=== PATIENT | male | born 1950 | race Caucasian/White ===

== ENCOUNTER 2024-12-21 12:27 | Outpatient (AMB) | payer OTHER, SELFPAY ==
--- NOTE | 2024-12-21 12:41 | A.OFFPC_ITS ---
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 Allergies chocolate Allergy (Intermediate, Verified 12/21/24 13:47) Rash environmental allergies Allergy (Intermediate, Verified 12/21/24 13:47) Rash Penicillins Allergy (Intermediate, Verified 12/21/24 13:13) Dizziness Medication List - Last Reconciled 12/21/24 by MARIPOSA Edwards garlic mg PO magnesium 500 mg PO DAILY pot bicarb-sod bicarb-cit ac 344-1,050-1,000 mg ([place] [facility]) 1 tab PO Q4H PRN Tobacco use date assessed: 12/21/24 Fall risk assessment: No Falls in past year Last assessed Fall Risk: 12/21/24 Dental Screening Dental Screen Date: 12/21/24 Did you have a dental visit in the last 12 months?: Yes Did you have a dental problem in the last 6 months where you did not have access to dental care?: No Was dental information given to patient?: 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 The patient reports scoliosis and arthritis, which cause significant back pain and mobility issues. He experiences days where he requires a wheelchair or walker due to severe pain. The arthritis affects his spine and back, leading to muscle displacement at night. He has cataracts in both eyes, which have not been surgically addressed due to financial constraints. The patient experiences cardiac arrhythmia, describing episodes where his heart stops and restarts, accompanied by visual disturbances and dizziness. These episodes occur almost every other day and have been increasing in frequency, even occurring during sleep. He has been advised that his heart valves are leaking, possibly due to age, and is considering valve replacement surgery. He has a history of high cholesterol, which he manages with dietary modifications, although he consumes ice cream daily. He was previously misinformed about having high blood sugar, which was corrected to high cholesterol. The patient also suffers from depression and anxiety, exacerbated by social isolation and recent family losses. He has no family support and relies on a caregiver for daily activities. The patient caregiver Tee over 14 hours a day with him, cooking cleaning and helping him with ADLs. Patient reports that his biggest fear has been placed in a residential. The patient reports significant environmental allergies that affects his breathing at times. He is requesting an order for an air conditioner that does not needs to be placed in the window, and an air purifier. The patient also reports that he is a hypochondriac, and he is scared of vaccines and medications. Murmur heard on assessment-reports that he had an echo probably about 10 months ago in [place] Patient to seek assistance from [facility] Medical History (Updated 12/22/24 @ 22:04 by MARIPOSA Edwards) Leaky heart valve Scoliosis Arthritis of lumbar spine Hypochondria Anxiety and depression Surgical History No pertinent past surgical history Family History Father Diabetes Brother Bladder cancer Mother Hypertension Brother Congestive heart failure Social History Household Members: None Housing: Apartment Alcohol intake: never Patient Tobacco Use Status: Never used Tobacco e-Cigarette/Vaping Use: Never Used service: No Current occupational status: retired Cognitive needs: Yes Hearing needs: No Vision needs: Yes Questionnaire PHQ-9 Over the last 2 weeks, how often have you been bothered by any of the following problems? 1. Little interest or pleasure in doing things: several days 2. Feeling down, depressed, or hopeless: several days 3. Trouble falling or staying asleep, or sleeping too much: several days 4. Feeling tired or having little energy: several days 5. Poor appetite or overeating: several days 6. Feeling bad about yourself - or that you are a failure or have let yourself or your family down: several days 7. Trouble concentrating on things, such as reading the newspaper or watching television: several days 8. Moving or speaking so slowly that other people could have noticed. Or the opposite - being so fidgety or restless that you have been moving around a lot more than usual: several days 9. Thoughts that you would be better off or of hurting yourself in some way: not at all Total score: 8 Depression Screening Interpretation: Positive Depression Screening Done: Yes 39741 - PHQ-9 Billing: Yes Source: Developed by Drs. Isac Mackay, Janeen Perry, Je Escobedo and colleagues, with an educational trey from [employer]. Thrive Questionnaire Date Thrive assessed: 12/21/24 I am a: Patient What is your living situation today?: I have a steady place to live Within the past 12 months, did the food you bought not last and you didn't have the money to get more?: Never true Within the past 12 months, did you worry whether your food would run out before you got money to buy more?: Never true Do you have trouble paying for medicines?: No Do you have trouble getting transportation to medical appointments?: No Do you have trouble paying your heating and electricity bill?: Yes Do you have trouble taking care of your child, family member or friend?: No Do you have trouble with day-to-day activities such as bathing, preparing meals, shopping, managing finances, etc.?: Yes Are you currently unemployed and looking for a job?: Yes Are you interested in more education?: No Please select the resources that you would like help with: None Currently or been in a relationship where the following occur: No concerns reported THRIVE Score: 1 AUDIT C Alcohol Use Questionnaire (AUDIT-C) 1. How often do you have a drink containing alcohol?: Never 3. How often do you have six or more drinks on one occasion?: Never Total Score: 0 MIRNA-7 AMB Questionnaire MIRNA-7 Date MIRNA - 7 assessed: 12/21/24 Feeling nervous, anxious, or on edge: 1 = Several days Not being able to stop or control worryin = Several days Worrying too much about different things: 1 = Several days Trouble relaxin = Several days Being so restless that it is hard to sit still: 1 = Several days Becoming easily annoyed or irritable: 1 = Several days Feeling afraid as if something awful might happen: 1 = Several days Total MIRNA-7 score (0-4 normal; 5-9 mild; 10-14 moderate; 15-21 severe): 7 Source: Developed by Drs. Isac Mackay, Janeen Perry, Je Escobedo and colleagues, with an educational trey from [employer]. MIRNA-7 Assessment Billing MIRNA-7 Assessment Tool: MIRNA-7 Assessment 47041 Review of Systems Const Denies headache(s) Eyes Denies loss of vision ENT Denies vertigo, Denies dizziness, Denies headache(s) and Denies sore throat Card Denies chest pain, Reports irregular heart rhythm, Denies leg edema and Denies lightheadedness Resp Denies cough, Denies hemoptysis and Denies wheezing GI Denies abdominal pain, Denies melena, Denies constipation, Denies diarrhea and Denies vomiting Denies dysuria, Denies urinary frequency and Denies urinary urgency Musc Denies arthralgias, Denies joint swelling, Denies numbness and Denies tingling Neuro Denies Abnormal speech present, Denies behavioral changes, Denies vertigo, Denies dizziness, Denies headache(s), Denies loss of vision, Denies memory loss, Denies numbness and Denies tingling Psych Denies anxiety, Denies behavioral changes, Denies depression, Denies memory loss and Denies panic attacks Miah/Lymph Denies easy bleeding and Denies easy bruising Aller/Immun Denies wheezing Physical exam (Primary Care) Vital Signs: Last Vital Signs Temp 97.3 F 12/21/24 12:54 Pulse 60 12/21/24 12:54 Resp 16 12/21/24 12:54 BP 122/90 H 12/21/24 12:54 Pulse Ox 96 12/21/24 12:54 Oxygen Delivery Method Room Air 12/21/24 12:54 BMI result Body Mass Index 25.4 Tobacco/Smoking Status: Tobacco use Status Tobacco use date assessed 12/21/24 12/21/24 13:04 Patient Tobacco Use Status Never used Tobacco 12/21/24 13:04 e-Cigarette/Vaping Use Never Used 12/21/24 13:04 PHQ-9: PHQ-9 Score PHQ-9: Total score 8 12/21/24 13:12 Depression Screening Interpretation: Positive Thrive Assessment: Date of Thrive Assessment Date Thrive assessed 12/21/24 12/21/24 13:04 Currently or been in a relationship where the following occur: No concerns reported Const General: healthy appearing, no acute distress, alert and awake Nutritional Appearance: well nourished Orientation/consciousness: oriented to person, oriented to place and oriented to time HENMT Ears: TM's normal bilaterally General nose exam: Normal nasal mucous membranes and turbinates present Eyes Conjunctivae: conjunctivae normal Sclerae: sclerae normal Pupils: Equal, round and reactive pupils present Neck Neck: Yes no lymphadenopathy and Yes no JVD Thyroid: Thyroid normal Carotids: no bruits Resp Effort & Inspection: normal respiratory effort and not tachypneic Auscultation: no crackles, no rales, no rhonchi and no wheezes Cardio Rate: regular rate Rhythm: regular rhythm Heart sounds: Murmur heart sound present systolic III/ and normal S1 and S2 GI Palpation (GI): Soft to palpation, nontender, no hepatomegaly and no splenomegaly Auscultation: normal bowel sounds Back/Spine/Pelvis Cervical Spine: other (Scoliosis, right [id number] back) Thoracic/Lumbar Spine: No thoracic spinal tenderness and No lumbar spinal tenderness Skin General skin exam: no rashes or lesions noted and dry skin Neuro General: oriented to person, oriented to place and oriented to time Cranial nerves: Yes Equal, round and reactive pupils present Speech: No Abnormal speech present Gait exam (Neuro): Normal gait present Motor exam (neuro): no tremor noted Extrem Right upper extremity: full ROM Left upper extremity: full ROM Right lower extremity: full ROM; no edema Left lower extremity: full ROM; no edema Psych Mental Status: mental status grossly normal Speech and movement: Normal speech and movement present Affect: normal affect Attitude: cooperative Thought process: Normal thought process present Coding Level of Care Code New Pt Level 4 (38130) Diagnoses Anxiety and depression F41.9; F32.A 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 M47.816 Scoliosis of thoracolumbar spine, unspecified scoliosis type M41.9 Scoliosis type: unspecified scoliosis Spinal region: thoracolumbar Leaky heart valve I38 Hyperlipidemia, unspecified hyperlipidemia type E78.5 Hyperlipidemia type: unspecified Additional Codes MIRNA-7 Assessment Billing - MIRNA-7 Assessment Tool: MIRNA-7 Assessment 53249 ([id number]) PHQ-9 - 84214 - PHQ-9 Billing: Yes ([id number]) Time Spent (min) 42 Assessment & Plan Assessment & Plan (1) Anxiety and depression: Code(s): F41.9 - Anxiety disorder, unspecified; F32.A - Depression, unspecified Category: Medical (2) Hypochondria: Code(s): 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 - Hypochondriasis Category: Medical (3) Arthritis of lumbar spine: Code(s): M47.816 - Spondylosis without myelopathy or radiculopathy, lumbar region Category: Medical (4) Scoliosis: Code(s): M41.9 - Scoliosis, unspecified Category: Medical Qualifiers: Scoliosis type: unspecified scoliosis Spinal region: thoracolumbar Qualified Code(s): M41.9 - Scoliosis, unspecified (5) Leaky heart valve: Code(s): I38 - Endocarditis, valve unspecified Category: Medical (6) HLD (hyperlipidemia): Code(s): E78.5 - Hyperlipidemia, unspecified Category: Medical Qualifiers: Hyperlipidemia type: unspecified Qualified Code(s): E78.5 - Hyperlipidemia, unspecified Plan The patient will continue to manage high cholesterol through dietary modifications, with a focus on reducing ice cream consumption. Further evaluation of cardiac arrhythmia is recommended, including obtaining previous echocardiogram records and considering valve replacement surgery if indicated. The patient is advised to seek psychological support for depression and anxiety, potentially through a psychologist or counselor. Continued use of a caregiver for daily activities is supported, with efforts to secure financial assistance for caregiving services. Patient was informed and verbally consented to the use of an ambient scribe for clinic note documentation during this visit. Orders: Orders Complete Blood Count Auto Diff 12/21/24 Z00.00 - Encounter for general adult medical examination without abnormal findings Comprehensive [place]. Panel Fast 12/21/24 Z00.00 - Encounter for general adult medical examination without abnormal findings UA CC w/rflx Micro + Cult 12/21/24 Z00.00 - Encounter for general adult medical examination without abnormal findings Vitamin D 25-OH Total 12/21/24 Z. - Encounter for general adult medical examination without abnormal findings Lipid Panel 12/21/24 Z00. - Encounter for general adult medical examination without abnormal findings TSH reflex Free T4 12/21/24 Z00.00 - Encounter for general adult medical examination without abnormal findings Referrals Counseling Referral F32.A - Depression, unspecified, F41.9 - Anxiety disorder, unspecified, F45.21 - Hypochondriasis
[2024-12-21 12:54] VITALS: BP 122/90; PULSE 60; RESP 16; TEMP 36.3; O2SAT 96; BMI 25.4
== END 2024-12-21 14:02 | disposition home or self-care (01) ==
LOC: HO.HMCH 12:28
DX: F41.9 Anxiety disorder, unspecified (principal); F32.A Depression, unspecified; F45.21 Hypochondriasis; M47.816 Spondylosis without myelopathy or radiculopathy, lumbar region; M41.9 Scoliosis, unspecified; I38 Endocarditis, valve unspecified; E78.5 Hyperlipidemia, unspecified

== ENCOUNTER → 2024-12-21 12:27 | Outpatient (BNVA) | payer OTHER, SELFPAY | DX: F45.21 Hypochondriasis (principal); M41.9 Scoliosis, unspecified; E78.00 Pure hypercholesterolemia, unspecified; F41.9 Anxiety disorder, unspecified; F32.A Depression, unspecified; J30.2 Other seasonal allergic rhinitis; M47.816 Spondylosis without myelopathy or radiculopathy, lumbar region; I38 Endocarditis, valve unspecified; E78.5 Hyperlipidemia, unspecified | CPT/HCPCS: 96127; 99202 ==

== ENCOUNTER 2025-03-23 14:28 | Outpatient (AMB) | payer OTHER, SELFPAY ==
[2025-03-23 14:37] VITALS: BP 160/90; PULSE 54; RESP 18; O2SAT 100; BMI 26.2
--- NOTE | 2025-03-23 14:37 | MHC.PC.OV ---
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 Accompanied by: Self / Same As Patient Allergies chocolate Allergy (Intermediate, Verified 03/23/25 14:52) Rash environmental allergies Allergy (Intermediate, Verified 03/23/25 14:52) Rash Penicillins Allergy (Intermediate, Verified 03/23/25 14:52) Dizziness Medication List - Last Reconciled 03/23/25 by MARIPOSA Edwards [air purifier As directed] garlic mg PO magnesium 500 mg PO DAILY pot bicarb-sod bicarb-cit ac 344-1,050-1,000 mg ([facility] [facility]) 1 tab PO Q4H PRN Tobacco use date assessed: 03/23/25 Fall risk assessment: No Falls in past year Last assessed Fall Risk: 03/23/25 Dental Screening Dental Screen Date: 03/23/25 Did you have a dental visit in the last 12 months?: Yes Did you have a dental problem in the last 6 months where you did not have access to dental care?: No Was dental information given to patient?: Patient has dentist HPI HPI Comments History of Present Illness Details The patient is a 74 year old individual presenting to discuss an insurance denial for an air purifier and other health concerns. The patient reports needing an air purifier and air conditioner due to health conditions. The patient brought in a certified letter from his landlord stating that his appointment as above a nail salon that is causing the patient difficulty to breathe. The patient reports severe allergies to different items in the environment. Per review of medical records the patient has a history of obstructive sleep apnea and was recommended to wear CPAP. Patient reports that he has not been wearing this. 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 In office the patient denies shortness of breath, chest pain, heart palpitation or dizziness. Patient denies abdominal pain or change in bowel habits. He reports ongoing intermittent diarrhea that he associated with his nerves/mental health. The patient wants to know if there is any vitamins or natural remedies to cure his intermittent diarrhea. The patient reports that he is a sick person but he is scared of taking any medication because his family members keep dying off and he is very worried about this. Blood pressure was noted to be elevated. He is wondering if there is something naturally he could do bring his blood pressure down. Encouraged lowering his salt intake. We will start a low-dose of lisinopril and have the patient return in 4 weeks for blood pressure check Health Maintenance A follow-up appointment will be scheduled in four months for a complete physical examination. The patient is advised to complete lab work one week prior to the appointment. Social History - Housing: The patient has lived in the same building for 40 years and reports concerns about - Stress: The patient reports significant stress and feeling - Nutritional Intake: The patient states they do not eat much and have been fasting, partly due to diarrhea. Results - Labs: Recent blood work from another provider reportedly showed cholesterol that was - Diagnostics: A sleep study from approximately two years ago suggested obstructive sleep apnea. [facility] Medical History (Updated 03/23/25 @ 23:00 by MARIPOSA Edwards) Colitis Leaky heart valve Scoliosis Arthritis of lumbar spine Hypochondria Anxiety and depression Surgical History No pertinent past surgical history Family History Father Diabetes Brother Bladder cancer Mother Hypertension Brother Congestive heart failure Social History Household Members: None Housing: Apartment Alcohol intake: never Patient Tobacco Use Status: Never used Tobacco e-Cigarette/Vaping Use: Never Used service: No Current occupational status: retired Cognitive needs: Yes Hearing needs: No Vision needs: Yes Questionnaire PHQ-9 Over the last 2 weeks, how often have you been bothered by any of the following problems? 1. Little interest or pleasure in doing things: several days 2. Feeling down, depressed, or hopeless: several days 3. Trouble falling or staying asleep, or sleeping too much: several days 4. Feeling tired or having little energy: several days 5. Poor appetite or overeating: several days 6. Feeling bad about yourself - or that you are a failure or have let yourself or your family down: several days 7. Trouble concentrating on things, such as reading the newspaper or watching television: several days 8. Moving or speaking so slowly that other people could have noticed. Or the opposite - being so fidgety or restless that you have been moving around a lot more than usual: several days 9. Thoughts that you would be better off or of hurting yourself in some way: not at all Total score: 8 Depression Screening Interpretation: Positive Depression Screening Done: Yes Source: Developed by Drs. Isac Mackay, Janeen Prery, Je Escobedo and colleagues, with an educational trey from [employer]. Thrive Questionnaire Date Thrive assessed: 03/23/25 I am a: Patient What is your living situation today?: I have a steady place to live Within the past 12 months, did the food you bought not last and you didn't have the money to get more?: Never true Within the past 12 months, did you worry whether your food would run out before you got money to buy more?: Never true Do you have trouble paying for medicines?: No Do you have trouble getting transportation to medical appointments?: No Do you have trouble paying your heating and electricity bill?: Yes Do you have trouble taking care of your child, family member or friend?: No Do you have trouble with day-to-day activities such as bathing, preparing meals, shopping, managing finances, etc.?: Yes Are you currently unemployed and looking for a job?: Yes Are you interested in more education?: No Please select the resources that you would like help with: None Currently or been in a relationship where the following occur: No concerns reported THRIVE Score: 1 AUDIT C Alcohol Use Questionnaire (AUDIT-C) 1. How often do you have a drink containing alcohol?: Never 3. How often do you have six or more drinks on one occasion?: Never Total Score: 0 MIRNA-7 AMB Questionnaire MIRNA-7 Date MIRNA - 7 assessed: 12/21/24 Feeling nervous, anxious, or on edge: 1 = Several days Not being able to stop or control worryin = Several days Worrying too much about different things: 1 = Several days Trouble relaxin = Several days Being so restless that it is hard to sit still: 1 = Several days Becoming easily annoyed or irritable: 1 = Several days Feeling afraid as if something awful might happen: 1 = Several days Total MIRNA-7 score (0-4 normal; 5-9 mild; 10-14 moderate; 15-21 severe): 7 Source: Developed by Drs. Isac Mackay, Janeen Perry, Je Escobedo and colleagues, with an educational trey from [employer]. Review of Systems Narrative Review of Systems - General: Reports not feeling well. - Cardiovascular: Reports palpitations. - Respiratory: Reports difficulty breathing. - Gastrointestinal: Reports diarrhea, occurring twice in one day. - Psychiatric: Reports significant stress and anxiety. - Neurological: Reports sleep problems. - Allergic/Immunologic: Reports Const Denies headache(s) Eyes Denies loss of vision ENT Denies vertigo, Denies dizziness, Denies headache(s), Reports nasal congestion (Intermittent) and Denies sore throat Card Denies chest pain, Reports irregular heart rhythm, Denies leg edema and Denies lightheadedness Resp Denies cough, Denies hemoptysis and Denies wheezing GI Denies abdominal pain, Denies melena, Denies constipation, Reports diarrhea (On and off) and Denies vomiting Denies dysuria, Denies urinary frequency and Denies urinary urgency Musc Reports back pain (Lower), Denies arthralgias, Denies joint swelling, Denies numbness and Denies tingling Skin/Breast Denies lesions and Denies rash Neuro Denies Abnormal speech present, Denies behavioral changes, Denies vertigo, Denies dizziness, Denies headache(s), Denies loss of vision, Denies memory loss, Denies numbness and Denies tingling Psych Reports anxiety, Denies behavioral changes, Denies depression, Denies memory loss and Denies panic attacks Miah/Lymph Denies easy bleeding and Denies easy bruising Aller/Immun Denies wheezing Physical exam (Primary Care) Vital Signs: Last Vital Signs Pulse 54 03/23/25 14:37 Resp 18 03/23/25 14:37 BP 160/90 H 03/23/25 14:37 Pulse Ox 100 03/23/25 14:37 Oxygen Delivery Method Room Air 03/23/25 14:37 BMI result Body Mass Index 26.2 Tobacco/Smoking Status: Tobacco use Status Tobacco use date assessed 03/23/25 03/23/25 14:48 Patient Tobacco Use Status Never used Tobacco 03/23/25 14:48 e-Cigarette/Vaping Use Never Used 03/23/25 14:48 PHQ-9: PHQ-9 Score PHQ-9: Total score 8 03/23/25 15:10 Depression Screening Interpretation: Positive Thrive Assessment: Date of Thrive Assessment Date Thrive assessed 03/23/25 03/23/25 14:48 Currently or been in a relationship where the following occur: No concerns reported Narrative Physical Exam Const General: healthy appearing, no acute distress, alert and awake Nutritional Appearance: well nourished Orientation/consciousness: oriented to person, oriented to place and oriented to time HENMT Ears: TM's normal bilaterally General nose exam: Abnormal mucous membranes and turbinates present erythematous bilateral Eyes Conjunctivae: conjunctivae normal Sclerae: sclerae normal Pupils: Equal, round and reactive pupils present Neck Neck: Yes no lymphadenopathy and Yes no JVD Thyroid: Thyroid normal Carotids: no bruits Resp Effort & Inspection: normal respiratory effort and not tachypneic Auscultation: no crackles, no rales, no rhonchi and no wheezes Cardio Rate: regular rate Rhythm: regular rhythm Heart sounds: Murmur heart sound present systolic III/ and normal S1 and S2 GI Palpation (GI): Soft to palpation, nontender, no hepatomegaly and no splenomegaly Auscultation: normal bowel sounds Back/Spine/Pelvis Cervical Spine: other (Scoliosis, right [id number] back) Thoracic/Lumbar Spine: No thoracic spinal tenderness and No lumbar spinal tenderness Skin General skin exam: no rashes or lesions noted and dry skin Neuro General: oriented to person, oriented to place and oriented to time Cranial nerves: Yes Equal, round and reactive pupils present Speech: No Abnormal speech present Gait exam (Neuro): Normal gait present Motor exam (neuro): no tremor noted Extrem Right upper extremity: full ROM Left upper extremity: full ROM Right lower extremity: full ROM; no edema Left lower extremity: full ROM; no edema Psych Mental Status: mental status grossly normal Speech and movement: Normal speech and movement present Affect: normal affect Attitude: cooperative Thought process: Normal thought process present Coding Level of Care Code Est Pt Level 4 (59303) Diagnoses Colitis K52.9 Anxiety and depression F41.9; F32.A Allergic rhinitis, unspecified seasonality, unspecified trigger J30.9 Allergic rhinitis trigger: unspecified Allergic rhinitis seasonality: unspecified Elevated blood pressure reading R03.0 Time Spent (min) 38 Assessment & Plan Assessment & Plan (1) Colitis: Code(s): K52.9 - Noninfective gastroenteritis and colitis, unspecified Category: Medical (2) Anxiety and depression: Code(s): F41.9 - Anxiety disorder, unspecified; F32.A - Depression, unspecified Category: Medical (3) Allergic rhinitis: Code(s): J30.9 - Allergic rhinitis, unspecified Category: Medical Qualifiers: Allergic rhinitis trigger: unspecified Allergic rhinitis seasonality: unspecified Qualified Code(s): J30.9 - Allergic rhinitis, unspecified (4) Elevated blood pressure reading: Code(s): R03.0 - Elevated blood-pressure reading, without diagnosis of hypertension Category: Medical Plan Plan Patient was informed and verbally consented to the use of an ambient scribe for clinic note documentation during this visit. 1. Allergic Rhinitis And Environmental Concerns An order for an air purifier for allergies was previously submitted but was denied by the patient's insurance. The patient has appealed the decision. The office staff will contact the insurance company to determine the reason for the denial and what additional documentation is needed. 2. Anxiety And Stress The patient reports significant stress and anxiety, which the patient believes triggers colitis symptoms. The patient agreed to a referral for a therapist. 3. Colitis The patient has a history of colitis for 40 years, which is reportedly exacerbated by stress and anxiety. The patient is currently experiencing diarrhea. Management will focus on addressing triggers, primarily through a therapy referral for stress management. Will also place a GI referral to the patient evaluated. 4. Elevated blood pressure in office Blood pressure 160/90, similar with upon repeat bp check. Started lisinopril 5 mg, return in 4 weeks for blood pressure check by nurse. Reinforced low-salt diet. Discussion Notes I discussed the patient's primary concern regarding the insurance denial for an air purifier. I informed the patient that I had previously ordered it for allergies but have not received any communication from the insurance company regarding a denial or need for more information. I advised that my office will call the insurance company to clarify the situation. We also reviewed the patient's other health concerns, including a history of colitis flared by stress, sleep apnea, heart palpitations, and anxiety. Given the significant impact of stress on the patient's well-being and physical symptoms, I recommended a referral to a therapist, to which the patient agreed. We agreed on a follow-up visit in four months for a comprehensive physical exam and to review fresh lab work, which the patient will have done a week prior to the visit. Patient Instructions - Our office will contact your insurance company about the denied request for an air purifier and see what information they need. - We will provide you with a referral to see a therapist for stress and anxiety. - Please schedule a follow-up appointment for a full physical exam in about four months. - Make sure to get your blood tests done about one week before your next appointment so the results are ready for your visit. Orders: Referrals Gastroenterology Referral K52.9 - Noninfective gastroenteritis and colitis, unspecified Counseling Referral F41.9 - Anxiety disorder, unspecified Medications: New lisinopril 5 mg PO DAILY 30 tabs 3RF lisinopril 5 mg PO DAILY 30 tabs 3RF
--- OUTSIDE RECORDS SUMMARY | 2025-03-23 19:51 | XMS_ITS | Data Portability ---
Author Organization [facility] Address [address] [place] [address] Assessment Encounter Date Assessment Date Assessment LastModified by Organization Details LastModified Time 12/23/2019 12/23/2019 Managed conservatively with medication. Discussed physical therapy for exercises for this issue. Return for worsening or if no further improvement. Follow-up with [facility] after PT regimen is completed and the following month. [email or web address] Not available 12/23/2019 17:29:21 09/20/2020 09/20/2020 1. Lumbar radiculopathy probably related to stenosis. PLAN: The patient s symptoms are recurrent and resistant to conservative measures. Further evaluation with MRI is appropriate. Follow-up with results. Not available 09/20/2020 15:37:00 10/11/2020 10/11/2020 1. Lumbar disc herniation. PLAN: Treatment options were discussed with the patient including medications, injecting and surgery. He is doing reasonably well on p.r.n. ibuprofen and has actually improved a bit, compared to when he was last here. Follow-up in a month or sooner as needed. Not available 10/12/2020 08:29:47 01/09/2021 01/09/2021 1. Lumbar disc herniation with flare-up after improvement. PLAN: We discussed his options including medication and injection. He wants to wait and see how things go. If he wants to pursue the epidural, he may call and request that. Overall continued improvement is expected over the long-term. Follow-up as needed. Meyers/[id number] [email or web address] Not available 01/09/2021 22:29:24 Plan of Treatment Reminders Order Date Submit Date Provider Last Modified By Organization Details Last Modified Time Details Appointments None recorded. Lab None recorded. Referral physical therapist referral 2019 020 SRAVANI [facility] [place], [address], [address], [place], [address], 0 08:40:15 Procedures None recorded. Surgeries None recorded. Imaging MRI, lumbar spine, w/o contrast - right leg pain 2020 021 SRAVANI [facility], [address], [address], [place], [address], 1 15:40:21 Medication Orders Medrol ([place]) 4 mg tablets in a dose pack 2019 020 [email or web address] [id number], [address] [place], [address], 0 15:38:39 Patient TargetsNo targets recorded. Patient Instructions Encounter Date Encounter Id Patient Instructions Last Modified By Organization Details Last Modified Time 09/20/2020 [id number] DISCUSSION: X-ra ys of the lumbar spine are reviewed on an imported study dated December 2019, [facility]. There is diffuse disc degeneration of a mild degree. He has significant facet hypertrophy at either L4-5 or L5-S1 on the right depending on numbering, probably L4-5. L4-5 facet joints look quite sclerotic on the lateral view with some vacuum phenomenon. Meyers/[id number] Not available 09/20/2020 15:37:11 10/11/2020 [id number] MRI shows posterolateral herniation at L3-4. This correlates well with his symptoms. Meyers/[id number] Not available 10/12/2020 08:29:57 Reason for Referral Physical Therapist Referral for Patellofemoral stress syndrome Referring Physician: Aguilar Healy, Orthopedic Surgery, Encounter Date: 12/23/2019 Results Created Date Observation Date Name Description Value Unit Range Abnormal Flag Note LastModifiedBy Organization Detail LastModifiedTime 10/03/1910/02/2020 MRI, lumba r spine , w/o contr ast [facility] [address], [address] [facility] [place] [id number] Josue cross Name: KEYA STONE 16 Josue cross : 1950 Referr eduard nath: Stephanie Meyers MD Exam Date: 2020 Exam Descri ption: MR Lumbar Spine w/o Contra st HISTOR Y: Radicu lopath y low back pain. Right lumbos acral and buttoc k pain. TECHNI NEIDA FACTOR S: L-Spin e Sag SE T1, Sag FSE T2, COR 3D HYCE, Ax SE T1. COMPAR BRIAN: None. FINDIN GS: Leftwa rd lumbar curvat ure. Normal lordos is. Bilate ral renal cyst. No compre ssion fractu re. No infilt rative or destru ctive bone lesion . L5-S1: Transi tional anatom y. Facet hypert rophy. Well-d evelop ed disc. Mild bilate ral forami nal stenos is. L4-5: Disc protru javier. Facet and ligame ntous hypert rophy. Loss of disc height and endpla te spurri ng. Modera te bilate ral forami nal stenos is and exitin g nerve imping ement. L3-4: Disc protru javier. Right pre forami nal disc hernia tion. Facet and ligame ntous hypert rophy. Modera te right greate r left neural forami nal stenos is and exitin g nerve imping ement. Severe right latera l recess stenos is and descen ding nerve imping ement. L2-3: Mild disc protru javier, facet hypert rophy. Mild bilate ral forami nal stenos is and exitin g nerve imping ement. L1-2: Mild disc protru javier and facet hypert rophy. Mild stenos is withou t imping ement. T12-L1 : No disc protru javier, stenos is or imping ement. Normal cord conus ending at L1. Normal aorta withou t aneury sm. No adenop athy. Normal parasp inal soft tissue s and muscul ature. CONCLU JAVIER: 1. L5-S1: Transi tional anatom y. Mild bilate ral forami nal stenos is withou t imping ement. 2. L4-5: Modera te bilate ral exitin g nerve imping ement. 3. L3-4: Modera te right greate r left exitin g and severe right descen ding nerve imping ement. Right pre forami nal disc hernia tion. 4. L2-3: Mild bilate ral exitin g nerve imping ement. Thank you for the opport unity to provid e your interp retati on. Laura Hallman MD A: 2020 1:50 PM rharden [facility] [address] [place] [address] [address], [place], [address], 10/04/2020 12:39:34 Result Notes Documentation Provider Name and Address Organization Details Recorded Time Mri, Lumbar Spine, W/o Contrast : [facility] [address], [address] [place], [place] [address] Patient Name: AGUILAR STONE Patient : 1950 Referring Physician: Matthew Meyers MD Exam Date: 09/28/2020 Exam Description: MR Lumbar Spine w/o Contrast HISTORY: Radiculopathy low back pain. Right lumbosacral and buttock pain. TECHNICAL FACTORS: L-Spine Sag SE T1, Sag FSE T2, COR 3D HYCE, Ax SE T1. COMPARISON: None. FINDINGS: Leftward lumbar curvature. Normal lordosis. Bilateral renal cyst. No compression fracture. No infiltrative or destructive bone lesion. L5-S1: Transitional anatomy. Facet hypertrophy. Well-developed disc. Mild bilateral foraminal stenosis. L4-5: Disc protrusion. Facet and ligamentous hypertrophy. Loss of disc height and endplate spurring. Moderate bilateral foraminal stenosis and exiting nerve impingement. L3-4: Disc protrusion. Right pre foraminal disc herniation. Facet and ligamentous hypertrophy. Moderate right greater left neural foraminal stenosis and exiting nerve impingement. Severe right lateral recess stenosis and descending nerve impingement. L2-3: Mild disc protrusion, facet hypertrophy. Mild bilateral foraminal stenosis and exiting nerve impingement. L1-2: Mild disc protrusion and facet hypertrophy. Mild stenosis without impingement. T12-L1: No disc protrusion, stenosis or impingement. Normal cord conus ending at L1. Normal aorta without aneurysm. No adenopathy. Normal paraspinal soft tissues and musculature. CONCLUSION: 1. L5-S1: Transitional anatomy. Mild bilateral foraminal stenosis without impingement. 2. L4-5: Moderate bilateral exiting nerve impingement. 3. L3-4: Moderate right greater left exiting and severe right descending nerve impingement. Right pre foraminal disc herniation. 4. L2-3: Mild bilateral exiting nerve impingement. Thank you for the opportunity to provide your interpretation. Cory Hallman MD A: 10/02/2020 1:50 PM LONA [email or web address] [facility] 10/04/2020 12:39:34 Problems No Known Problems Medical Equipment None Reported. Allergies No known drug allergies Medications Name Sig Start Date Stop Date Status Note LastModified by Organization Details LastModified Time Medrol ([place]) 4 mg tablets in a dose pack Take 1 dose pk by oral route. 020 active Not Available Not Available Not Avai lable prednisone 5 mg tablets in a dose pack TAKE DIRECTED START TOMORROW WITH FOOD active Not Available Not Available No t Available vitamin E 1 daily active Not Available Not Av ailable Not Available Vitals Date Recorded Body height Provider Name an d Address Organization Details Last Updated DateTime 09/20/2020 167.64 cm Sejal Zhao [facility] 09/20/2020 10:23:30 Date Recorded Body height Provider Name an d Address Organization Details Last Updated DateTime 10/11/2020 167.64 [facility] 10/11/2020 15:09:05 Date Recorded Body height Body mass index (BMI) Body weight Provider Name and Address Organization Details Last Updated DateTime 12/23/2019 167.64 cm 25 kg/m2 19984.82 g [facility] 12/23/2019 13:03:33 Date Recorded Body height Provider Name an d Address Organization Details Last Updated DateTime 01/09/2021 167.64 cm Dulce Reid [facility] 01/09/2021 08:26:22 Social History Question Answer Notes LastModified by Organizat ion Details LastModified Time Tobacco Smoking Status Never Smoker Fabienne kennedy, [place] - [facility] 12/20/2019 16:59:13 Do You Have An Advance Directive? No [email or web address] Information not available 12/20/2019 How Many Years Have You Consumed Alcohol? 0 Information not available 12/20/2019 Auto Related Injury? No Information not available 01/09/2021 What Is Your Level Of Caffeine Consumption? Occasional [email or web address] Information not available 12/20/2019 How Much Tobacco Do You Chew? None [email or web address] Information not available 12/20/2019 Which Of Your Hands Is Dominant? Right [email or web address] Information not available 12/20/2019 Ambulatory Status Ambulates W/o Assistance [email or web address] Information not available 12/20/2019 Do You Live Alone Or With Others? Yes [email or web address] Information not available 12/20/2019 Illicit Drugs No [email or web address] Information not available 12/20/2019 Do You Vape? No [email or web address] Information not available 12/20/2019 Marital Status Single Informatio n not available 01/09/2021 What Was The Date Of Your Most Recent Tobacco Screening? 12/20/2019 Information not available 01/09/2021 How Many Children Do You Have? 0 Information not available 01/09/2021 At What Age Did You Start Smoking Tobacco? 0 Information not available 01/09/2021 How Much Tobacco Do You Smoke? No [email or web address] Information not available 12/20/2019 How Many Years Have You Smoked Tobacco? 0 Information not available 01/09/2021 Work Related Injury? No Information not available 01/09/2021 Sex: Unknown Functional Status Question Answer Note LastModified by Organizat ion Details LastModified Time What is your level of alcohol consumption? None [email or web address] Information not available 12/20/2019 Do you or have you ever used smokeless tobacco? 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 Never used electronic cigarettes Information not available 01/09/2021 What is your exercise level? None [email or web address] Information not available 12/20/2019 Mental Status None recorded. Family History Relationship Description Onset Age of this Age Resolved Age Notes LastModified by Organization Details LastModified Time Mother Heart failure [email or web address] Not available 2020 08:16:28 Father Cerebrovascu lar accident [email or web address] Not available 16:59:09 Medical History Condition Response Pancreatitis N HIV or AIDS N Coronary Artery Disease N Gout N High Blood Pressure N Diarrhea N Kidney Stones N Irregular Heartbeat N Head Trauma/Injury N Emphysema N Hernia N Glaucoma N Blood Clots N COPD N Depression N Lung Disease N Pacemaker N Thyroid N Sleep Apea N Repeated Fevers N Anxiety Disorder N Muscle, Joint, or Bone Problems Y Arthritis Y Serious Illness or Injuries N Carpal Tunnel N Congenital Anomalies N Cancer N Stroke N Neck Injury N Leg or Foot Ulcers N Bladder or Kidney Problems N Shortness of Breath N High Cholesterol N Rashes N Neurologic Disorder N Liver Disease N Organ Transplant N Arrhythmia N Rheumatoid Arthritis N Fibromyalgia N Hives or other skin conditions N Kidney Disease N Prostate N Heart Problems N Weight Loss N Osteoarthritis N Coagulation Disorder N Balance Problems N Stroke TIA N Gallstones N Anemia N Heart Attack (AR) N Ulcers N Diabetes N Mental Health N Bleeding Disorder N Seizures/Epilepsy N Urinary burning, pain or frequency N Skin problems N Headaches or Migraines N Eczema N Diverticulitis N Asthma N Allergies Y Sinus Problems N Peripheral Vascular Disease N Blackouts N Easy Bruising N Numbness/Tingling N GERD/Reflux N Hepatitis N Heart Disease N Neuropathy N Pulmonary Embolism N Hypertension N Osteoporosis N Past Encounters Encounter ID Performer Location Encounter Start Date Encounter Closed Date Diagnosis/Indication Diagnosis SNOMED-CT Code Diagnosis ICD10 Code Diagnosis IMO Codes Diagnosis Note [id number] Matthew Meyers MD [facility] [address] [place] [address] 12/23/2019 12:44:28 12/23/2019 14:12:36 Patellofemoral stress syndrome 970416174 M22.2X9 [id number] Matthew Meyers MD [facility] [address] [place] [address] 09/20/2020 10:16:24 09/20/2020 11:12:43 Lumbar radiculopathy 635942687 M54.16 [id number] Matthew Meyers MD [facility] [address] [place] [address] 10/11/2020 15:06:45 10/11/2020 16:18:12 Lumbar disc prolapse with radiculopathy 112243519 M51.16 [id number] Matthew Meyers MD [facility] [address] [place] [address] 01/09/2021 08:14:03 01/09/2021 12:12:53 Lumbar disc prolapse with radiculopathy 561707542 M51.16 Health Concerns Section Related Observation LastModified by Organization Detai ls LastModified Time None Recorded Concern Status LastModified by Organization Details LastModified Time None Recorded Advance Directives Directive N: Payers Insurance Date Sequence Insurance Name Policy Number Policy Leon Covered Member ID Leon Member ID Guarantor Name 01/09/2021 2 [place]COND[place] MEDICARE) Aguilar Fernando [id number] Aguilar Fernando 02/28/2021 [place]CON[place] MEDICARE) Aguilar Fernando [id number] Aguilar Fernando 01/09/2021 2 [place] Aguilar Fernando [id number] Aguilar Fernando 09/20/2020 2 [place]CON[place] Aguilar Fernando [id number] Aguilar Fernando 01/08/2021 1 [place] Aguilar R Fernando [id number] Aguilar Fernando 01/26/2021 2 [place] [facility] Aguilar Fernando [id number] Aguilar Fernando Notes Date Note Type Note Provider Name and Address Organization Details Recorded Time 12/23/2019 text/html ROS as noted in the HPI Patient presents to the clinic today with concerns of right leg pain and stiffness. Notes that this is been ongoing for about 2-1/2 weeks. Relates that he does not have a vehicle and normally ambulates [id number] from the bus carrying his groceries etc. Notes that he has been taking ibuprofen however this does not give him significant relief from this leg pain/stiffness. Notes that he does have some long-term back pain but denies any radicular type pain or association with this current complaint. Denies other concerns or complaints today. Denies recent fever, chills, cough, shortness of breath. ELIZABETH Khan [address], [place], [address], [facility] 12/23/2019 17:29:40 09/20/2020 text/html Aguilar Stone is follow-up of back and leg symptoms. His symptoms cleared up last fall and starting over the last few months, they have returned. Pain has gotten quite bad in the last two weeks. He has pain in the right lumbosacral and buttock area with radiation into the posterior thigh down to the knee. He resumed exercises he was given last year and has been referred for physical therapy again. He is concerned the leg pain is somehow related to his scoliosis. Matthew Meyers MD [address], [place], [address], [facility] 09/20/2020 21:42:29 10/11/2020 text/html Aguilar Stone is follow-up of lumbar MRI. Matthew Meeyrs MD [address], [place], [address], [facility] 10/13/2020 18:45:52 01/09/2021 text/html Aguilar Stone had been doing well until this past weekend when he developed an acute episode of pain and could barely move. That has eased up and now he has pain in the anterior thigh. Matthew Meyers MD [address], [place], [address], [facility] 01/09/2021 22:31:07
--- OUTSIDE RECORDS SUMMARY | 2025-03-23 19:51 | XMS_ITS | Data Portability ---
Author Organization [facility], Main Office Address [address] [place] [address] Care Team Providers Care High Pressure Cleaner Name Role Phone UDAY BARTON Primary Care Provider Assessment Encounter Date Assessment Date Assessment LastModified by Organization Details LastModified Time 01/26/2015 01/26/2015 64 yo M presents requesting a letter be done for his [place], [place] apartment stating he cannot be kicked out because he is disabled. [email or web address] Not available 01/26/2015 15:26:23 Plan of Treatment Reminders Order Date Submit Date Provider Last Modified By Organization Details Last Modified Time Details Appointments None recorded . Lab CBC w/ auto diff 2015 016 SRAVANI Not available 6 19:46:07 lipid panel, serum 2015 016 SRAVANI Not available 6 20:25:08 CMP, serum or plasma 2015 016 SRAVANI Not available 6 20:25:07 hepatiti s C Ab, serum 2015 016 SRAVANI Not available 6 10:13:03 lipid panel, serum 2013 014 acennerazzo Not available 4 16:32:57 CMP, serum or plasma 2013 014 acennerazzo Not available 4 16:32:57 Referral physical therapis t referral - At risk for falling 2015 016 kschultchelle Not available 6 08:57:06 physical therapis t referral - At risk for falling 2013 015 [email or web address] Not available 5 08:19:46 Procedures cerumen removal (PROC) 2013 014 nbarrows In-Office Order, Internal Use Only DO Not Attach Compendium DO Not Attach Compendium, Do Not Delete/merge, [id number] 10:29:27 Surgeries None recorded . Imaging electroc ardiogra m 2015 016 acennerazzo In-Office Order, Internal Use Only DO Not Attach Compendium DO Not Attach Compendium, Do Not Delete/merge, [id number] 6 18:19:31 Medication Orders None recorded . Patient TargetsNo targets recorded. Patient Instructions Encounter Date Encounter Id Patient Instructions Last Modified By Organization Details Last Modified Time 04/21/2014 [id number] earwax blockage: care instructions acennerazzo Not available 04/23/2014 16:32:57 preventing falls: care instructions acennerazzo Not available 04/23/2014 16:32:57 01/26/2015 [id number] To call or return for worsening or concerns [email or web address] Not available 01/26/2015 15:26:23 Medications were reviewed at this visit and reconciled. Changes in the active medications are reflected in the current medication list and discussed with patient with instructions for follow up as needed. Printed medication list provided to the patient as part of the visit summary.I have reviewed the note and agree with the assessment and plan of care. acennerazzo Not available 01/27/2015 14:30:35 06/28/2015 [id number] palpitations: care instructions acennerazzo Not available 06/28/2015 18:19:31 high cholesterol: care instructions acennerazzo Not available 06/28/2015 18:19:31 preventing falls: care instructions acennerazzo Not available 06/28/2015 18:19:32 Reason for Referral At risk for falling Referring Physician: Uday Barton, Family Medicine, Encounter Date: 04/21/2014 At risk for falling Referring Physician: Uday Barton Family Medicine, Encounter Date: 06/28/2015 Results Created Date Observation Date Name Description Value Unit Range Abnormal Flag Note LastModifiedBy Organization Detail LastModifiedTime 06/28/19 16 06/28/2015 sunny dawson diogr am Rate & Rhythm NSR and rate Not Available In-Office Order Internal Use Only DO Not Attach Compendium DO Not Attach Compendium, Do Not Delete/merge, [id number] 06/28/2015 14:28:03 06/28/19 16 06/28/2015 sunny dawson diogr am QRS Not Available In-Office Order Internal Use Only DO Not Attach Compendium DO Not Attach Compendium, Do Not Delete/merge, [id number] 06/28/2015 14:28:03 06/28/19 16 06/28/2015 sunny dawson diogr am AL Interval Not Available In-Off ice Order Internal Use Only DO Not Attach Compendium DO Not Attach Compendium, Do Not Delete/merge, [id number] 06/28/2015 14:28:03 06/28/19 16 06/28/2015 sunny dawson diogr am QRS Duration Not Available In-Of fice Order Internal Use Only DO Not Attach Compendium DO Not Attach Compendium, Do Not Delete/merge, [id number] 06/28/2015 14:28:03 06/28/19 16 06/28/2015 sunny dawson diogr am QT Interval Not Available In-Off ice Order Internal Use Only DO Not Attach Compendium DO Not Attach Compendium, Do Not Delete/merge, [id number] 06/28/2015 14:28:03 04/21/20 14 04/24/2014 natalia capone al (PROC ) done Not Available In-Office Order Internal Use Only DO Not Attach Compendium DO Not Attach Compendium, Do Not Delete/merge, [id number] 04/21/2014 14:24:50 04/21/20 14 04/21/2014 CMP, serum or plasm a glucose 80 mg/dL (70-99 ) Not Available [facility] (Centralized Electronic Ordering - All Locations) Patient Can Go To The Location Of Their Choice, [id number] 04/21/2014 19:33:18 04/21/20 14 04/21/2014 CMP, serum or plasm a BUN 12 mg/dL (8-23) Not Available [facility] (Centralized Electronic Ordering - All Locations) Patient Can Go To The Location Of Their Choice, 04/21/2014 19:33:18 04/21/20 14 04/21/2014 CMP, serum or plasm a creatinine 0.9 mg/dL (0.7-1 .2) Not Available [facility] (Centralized Electronic Ordering - All Locations) Patient Can Go To The Location Of Their Choice, 04/21/2014 19:33:18 04/21/20 14 04/21/2014 CMP, serum or plasm a sodium 143 mmol/ L (133-1 45) Not Available [facility] (Centralized Electronic Ordering - All Locations) Patient Can Go To The Location Of Their Choice, 04/21/2014 19:33:18 04/21/20 14 04/21/2014 CMP, serum or plasm a potassium 4.7 mmol/ L (3.6-5 .2) Not Available [facility] (Centralized Electronic Ordering - All Locations) Patient Can Go To The Location Of Their Choice, 04/21/2014 19:33:18 04/21/20 14 04/21/2014 CMP, serum or plasm a chloride 102 mmol/ L (98-10 7) Not Available [facility] (Centralized Electronic Ordering - All Locations) Patient Can Go To The Location Of Their Choice, 04/21/2014 19:33:18 04/21/20 14 04/21/2014 CMP, serum or plasm a bicarbonate 33 mmol/ L (22-29 ) high Not Available [facility] (Centralized Electronic Ordering - All Locations) Patient Can Go To The Location Of Their Choice, 04/21/2014 19:33:18 04/21/20 14 04/21/2014 CMP, serum or plasm a anion gap 8 (4-17) Not Available [facility] (Centralized Electronic Ordering - All Locations) Patient Can Go To The Location Of Their Choice, 04/21/2014 19:33:18 04/21/20 14 04/21/2014 CMP, serum or plasm a albumin 4.8 gm/dL (3.4-4 .8) Not Available [facility] (Centralized Electronic Ordering - All Locations) Patient Can Go To The Location Of Their Choice, 04/21/2014 19:33:18 04/21/20 14 04/21/2014 CMP, serum or plasm a calcium 9.8 mg/dL (8.6-1 0.5) Not Available [facility] (Centralized Electronic Ordering - All Locations) Patient Can Go To The Location Of Their Choice, 04/21/2014 19:33:04/21/20 14 04/21/2014 CMP, serum or plasm a bilirubin,to monika 0.5 mg/dL (0-1.2 ) Not Available [facility] (Centralized Electronic Ordering - All Locations) Patient Can Go To The Location Of Their Choice, 04/21/2014 19:33:04/21/20 14 04/21/2014 CMP, serum or plasm a total protein 7.0 gm/dL (6.2-8 .2) Not Available [facility] (Centralized Electronic Ordering - All Locations) Patient Can Go To The Location Of Their Choice, 04/21/2014 19:33:04/21/20 14 04/21/2014 CMP, serum or plasm a Ag ratio 2.2 Not Available [facility] (Centralized Electronic Ordering - All Locations) Patient Can Go To The Location Of Their Choice, 04/21/2014 19:33:04/21/20 14 04/21/2014 CMP, serum or plasm a AST 21 U/L (0-38) Not Available [facility] (Centralized Electronic Ordering - All Locations) Patient Can Go To The Location Of Their Choice, 04/21/2014 19:33:04/21/20 14 04/21/2014 CMP, serum or plasm a alk phos 48 U/L (40-12 9) Not Available [facility] (Centralized Electronic Ordering - All Locations) Patient Can Go To The Location Of Their Choice, 04/21/2014 19:33:04/21/20 14 04/21/2014 CMP, serum or plasm a ALT 22 U/L (0-41) Not Available [facility] (Centralized Electronic Ordering - All Locations) Patient Can Go To The Location Of Their Choice, 04/21/2014 19:33:04/21/2004/21/2014 CMP, serum or plasm a est GFR non >60 mL/mi n/1.7 3_M2 THE MDRD STUDY 'S ESTIM ATED GFR EQUAT ION HAS NOT BEEN VALID ATED IN CHILD ARMIDA (<18 YRS), PREGN ANT WOMEN , THE ELDER LY (AGE >70 YRS), RACIA L OR ETHNI C SUBGR OUPS OTHER THAN CAUCA SIANS AND AFRIC AN AMERI CANS. Not Available [facility] (Centralized Electronic Ordering - All Locations) Patient Can Go To The Location Of Their Choice, 04/21/2014 19:33:18 04/21/20 14 04/21/2014 CMP, serum or plasm a est GFR >60 mL/mi n/1.7 3_M2 THE MDRD STUDY 'S ESTIM ATED GFR EQUAT ION HAS NOT BEEN VALID ATED IN CHILD ARMIDA (<18 YRS), PREGN ANT WOMEN , THE ELDER LY (AGE >70 YRS), RACIA L OR ETHNI C SUBGR OUPS OTHER THAN CAUCA SIANS AND AFRIC AN AMERI CANS. Not Available [facility] (Centralized Electronic Ordering - All Locations) Patient Can Go To The Location Of Their Choice, 04/21/2014 19:33:18 04/21/20 14 04/21/2014 lipid panel , serum cholesterol, total 181 mg/dL (<200) Not Available [facility] (Centralized Electronic Ordering - All Locations) Patient Can Go To The Location Of Their Choice, 04/21/2014 19:33:19 04/21/20 14 04/21/2014 lipid panel , serum triglyceride 111 mg/dL (<150) Not Available [facility] (Centralized Electronic Ordering - All Locations) Patient Can Go To The Location Of Their Choice, 04/21/2014 19:33:19 04/21/20 14 04/21/2014 lipid panel , serum HDL chol 55 mg/dL (>39) Not Available [facility] (Centralized Electronic Ordering - All Locations) Patient Can Go To The Location Of Their Choice, 04/21/2014 19:33:19 04/21/20 14 04/21/2014 lipid panel , serum LDL cholesterol, calculated 104 mg/dL (0-130 ) Not Available [facility] (Centralized Electronic Ordering - All Locations) Patient Can Go To The Location Of Their Choice, 04/21/2014 19:33:19 04/21/20 14 04/21/2014 lipid panel , serum non HDL cholesterol (calc) 126 mg/dL (<160) Not Available [facility] (Centralized Electronic Ordering - All Locations) Patient Can Go To The Location Of Their Choice, 04/21/2014 19:33:19 06/28/1906/28/2015 CBC w/ auto diff WBC 5.7 K/mm3 (4.0-1 1.0) Not Available [facility] (Centralized Electronic Ordering - All Locations) Patient Can Go To The Location Of Their Choice, 06/28/2015 19:46:07 06/28/1906/28/2015 CBC w/ auto diff RBC 5.17 M/mm3 (4.70- 6.10) Not Available [facility] (Centralized Electronic Ordering - All Locations) Patient Can Go To The Location Of Their Choice, 06/28/2015 19:46:07 06/28/1906/28/2015 CBC w/ auto diff HGB 14.9 gm/dL (14.0- 18.0) Not Available [facility] (Centralized Electronic Ordering - All Locations) Patient Can Go To The Location Of Their Choice, 06/28/2015 19:46:07 06/28/1906/28/2015 CBC w/ auto diff HCT 45.8 % (42.0- 52.0) Not Available [facility] (Centralized Electronic Ordering - All Locations) Patient Can Go To The Location Of Their Choice, 06/28/2015 19:46:07 06/28/1906/28/2015 CBC w/ auto diff MCV 88.6 fL (80.0- 94.0) Not Available [facility] (Centralized Electronic Ordering - All Locations) Patient Can Go To The Location Of Their Choice, 06/28/2015 19:46:07 06/28/1906/28/2015 CBC w/ auto diff MCH 28.8 pg (27.0- 34.0) Not Available [facility] (Centralized Electronic Ordering - All Locations) Patient Can Go To The Location Of Their Choice, 06/28/2015 19:46:07 06/28/1906/28/2015 CBC w/ auto diff MCHC 32.5 % (33.0- 37.0) low Not Available [facility] (Centralized Electronic Ordering - All Locations) Patient Can Go To The Location Of Their Choice, 06/28/2015 19:46:07 06/28/1906/28/2015 CBC w/ auto diff plt 241 K/mm3 (150-4 60) Not Available [facility] (Centralized Electronic Ordering - All Locations) Patient Can Go To The Location Of Their Choice, 06/28/2015 19:46:07 06/28/19 16 06/28/2015 CBC w/ auto diff RDW-SD 40.8 fL (<47.0 ) Not Available [facility] (Centralized Electronic Ordering - All Locations) Patient Can Go To The Location Of Their Choice, 06/28/2015 19:46:07 06/28/1906/28/2015 CBC w/ auto diff MPV 10.9 fL (9.4-1 2.4) Not Available [facility] (Centralized Electronic Ordering - All Locations) Patient Can Go To The Location Of Their Choice, 06/28/2015 19:46:07 06/28/1906/28/2015 CBC w/ auto diff automated NRBC 0.0 #/100 _WBC' s Not Available [facility] (Centralized Electronic Ordering - All Locations) Patient Can Go To The Location Of Their Choice, 06/28/2015 19:46:07 06/28/1906/28/2015 CBC w/ auto diff abs. NRBC 0.0 K/mm3 Not Available [facility] (Centralized Electronic Ordering - All Locations) Patient Can Go To The Location Of Their Choice, 06/28/2015 19:46:07 06/28/1906/28/2015 CBC w/ auto diff neut # 3.4 K/mm3 (1.3-7 .0) Not Available [facility] (Centralized Electronic Ordering - All Locations) Patient Can Go To The Location Of Their Choice, 06/28/2015 19:46:07 06/28/1906/28/2015 CBC w/ auto diff lymph # 1.8 K/mm3 (0.8-3 .1) Not Available [facility] (Centralized Electronic Ordering - All Locations) Patient Can Go To The Location Of Their Choice, 06/28/2015 19:46:07 06/28/1906/28/2015 CBC w/ auto diff mono# 0.3 K/mm3 (0.4-1 .3) low Not Available [facility] (Centralized Electronic Ordering - All Locations) Patient Can Go To The Location Of Their Choice, 06/28/2015 19:46:07 06/28/1906/28/2015 CBC w/ auto diff eo # 0.1 K/mm3 (0.0-0 .4) Not Available [facility] (Centralized Electronic Ordering - All Locations) Patient Can Go To The Location Of Their Choice, 06/28/2015 19:46:07 06/28/1906/28/2015 CBC w/ auto diff baso # 0.0 K/mm3 (0.0-0 .1) Not Available [facility] (Centralized Electronic Ordering - All Locations) Patient Can Go To The Location Of Their Choice, 06/28/2015 19:46:07 06/28/1906/28/2015 CBC w/ auto diff abs. imm gran 0.0 K/mm3 Not Available [facility] (Centralized Electronic Ordering - All Locations) Patient Can Go To The Location Of Their Choice, 06/28/2015 19:46:07 06/28/1906/28/2015 CBC w/ auto diff neut 59.6 % (44-76 ) Not Available [facility] (Centralized Electronic Ordering - All Locations) Patient Can Go To The Location Of Their Choice, 06/28/2015 19:46:07 06/28/1906/28/2015 CBC w/ auto diff lymph 31.6 % (15-43 ) Not Available [facility] (Centralized Electronic Ordering - All Locations) Patient Can Go To The Location Of Their Choice, 06/28/2015 19:46:07 06/28/1906/28/2015 CBC w/ auto diff monocyte 6.0 % (4.5-1 0.5) Not Available [facility] (Centralized Electronic Ordering - All Locations) Patient Can Go To The Location Of Their Choice, 06/28/2015 19:46:07 06/28/1906/28/2015 CBC w/ auto diff eo 1.9 % (0-6) Not Available [facility] (Centralized Electronic Ordering - All Locations) Patient Can Go To The Location Of Their Choice, 06/28/2015 19:46:07 06/28/1906/28/2015 CBC w/ auto diff baso 0.5 % (0-2) Not Available [facility] (Centralized Electronic Ordering - All Locations) Patient Can Go To The Location Of Their Choice, 06/28/2015 19:46:07 06/28/19 16 06/28/2015 CBC w/ auto diff imm gran 0.4 % (0.0-0 .6) Not Available [facility] (Centralized Electronic Ordering - All Locations) Patient Can Go To The Location Of Their Choice, 06/28/2015 19:46:07 06/28/19 16 06/28/2015 CMP, serum or plasm a glucose 84 mg/dL (70-99 ) Not Available [facility] (Centralized Electronic Ordering - All Locations) Patient Can Go To The Location Of Their Choice, 06/28/2015 20:25:07 06/28/19 16 06/28/2015 CMP, serum or plasm a BUN 11 mg/dL (8-23) Not Available [facility] (Centralized Electronic Ordering - All Locations) Patient Can Go To The Location Of Their Choice, 06/28/2015 20:25:07 06/28/19 16 06/28/2015 CMP, serum or plasm a creatinine 1.0 mg/dL (0.7-1 .2) Not Available [facility] (Centralized Electronic Ordering - All Locations) Patient Can Go To The Location Of Their Choice, 06/28/2015 20:25:07 06/28/19 16 06/28/2015 CMP, serum or plasm a sodium 142 mmol/ L (133-1 45) Not Available [facility] (Centralized Electronic Ordering - All Locations) Patient Can Go To The Location Of Their Choice, 06/28/2015 20:25:07 06/28/19 16 06/28/2015 CMP, serum or plasm a potassium 4.6 mmol/ L (3.6-5 .2) Not Available [facility] (Centralized Electronic Ordering - All Locations) Patient Can Go To The Location Of Their Choice, 06/28/2015 20:25:07 06/28/19 16 06/28/2015 CMP, serum or plasm a chloride 101 mmol/ L (98-10 7) Not Available [facility] (Centralized Electronic Ordering - All Locations) Patient Can Go To The Location Of Their Choice, 06/28/2015 20:25:07 06/28/19 16 06/28/2015 CMP, serum or plasm a bicarbonate 31 mmol/ L (22-29 ) high Not Available [facility] (Centralized Electronic Ordering - All Locations) Patient Can Go To The Location Of Their Choice, 06/28/2015 20:25:07 06/28/19 16 06/28/2015 CMP, serum or plasm a anion gap 10 (4-17) Not Available [facility] (Centralized Electronic Ordering - All Locations) Patient Can Go To The Location Of Their Choice, 06/28/2015 20:25:07 06/28/19 16 06/28/2015 CMP, serum or plasm a albumin 4.9 gm/dL (3.4-4 .8) high Not Available [facility] (Centralized Electronic Ordering - All Locations) Patient Can Go To The Location Of Their Choice, 06/28/2015 20:25:07 06/28/19 16 06/28/2015 CMP, serum or plasm a calcium 9.5 mg/dL (8.6-1 0.5) Not Available [facility] (Centralized Electronic Ordering - All Locations) Patient Can Go To The Location Of Their Choice, 06/28/2015 20:25:07 06/28/19 16 06/28/2015 CMP, serum or plasm a bilirubin,to monika 0.6 mg/dL (0-1.2 ) Not Available [facility] (Centralized Electronic Ordering - All Locations) Patient Can Go To The Location Of Their Choice, 06/28/2015 20:25:06/28/19 16 06/28/2015 CMP, serum or plasm a total protein 7.1 gm/dL (6.2-8 .2) Not Available [facility] (Centralized Electronic Ordering - All Locations) Patient Can Go To The Location Of Their Choice, 06/28/2015 20:25:07 06/28/19 16 06/28/2015 CMP, serum or plasm a Ag ratio 2.2 Not Available [facility] (Centralized Electronic Ordering - All Locations) Patient Can Go To The Location Of Their Choice, 06/28/2015 20:25:07 06/28/19 16 06/28/2015 CMP, serum or plasm a AST 19 U/L (0-38) Not Available [facility] (Centralized Electronic Ordering - All Locations) Patient Can Go To The Location Of Their Choice, 06/28/2015 20:25:07 06/28/19 16 06/28/2015 CMP, serum or plasm a alk phos 49 U/L (40-12 9) Not Available [facility] (Centralized Electronic Ordering - All Locations) Patient Can Go To The Location Of Their Choice, 06/28/2015 20:25:07 06/28/19 16 06/28/2015 CMP, serum or plasm a ALT 20 U/L (0-41) Not Available [facility] (Centralized Electronic Ordering - All Locations) Patient Can Go To The Location Of Their Choice, 06/28/2015 20:25:07 06/28/19 16 06/28/2015 CMP, serum or plasm a est GFR non >60 mL/mi n/1.7 3_M2 THE MDRD STUDY 'S ESTIM ATED GFR EQUAT ION HAS NOT BEEN VALID ATED IN CHILD ARMIDA (<18 YRS), PREGN ANT WOMEN , THE ELDER LY (AGE >70 YRS), RACIA L OR ETHNI C SUBGR OUPS OTHER THAN CAUCA SIANS AND AFRIC AN AMERI CANS. Not Available [facility] (Centralized Electronic Ordering - All Locations) Patient Can Go To The Location Of Their Choice, 06/28/2015 20:25:07 06/28/19 16 06/28/2015 CMP, serum or plasm a est GFR >60 mL/mi n/1.7 3_M2 THE MDRD STUDY 'S ESTIM ATED GFR EQUAT ION HAS NOT BEEN VALID ATED IN CHILD ARMIDA (<18 YRS), PREGN ANT WOMEN , THE ELDER LY (AGE >70 YRS), RACIA L OR ETHNI C SUBGR OUPS OTHER THAN CAUCA SIANS AND AFRIC AN AMERI CANS. Not Available [facility] (Centralized Electronic Ordering - All Locations) Patient Can Go To The Location Of Their Choice, 06/28/2015 20:25:07 06/28/1906/28/2015 lipid panel , serum cholesterol, total 178 mg/dL (<200) Not Available [facility] ([facility] Ordering - All Locations) Patient Can Go To The Location Of Their Choice, 06/28/2015 20:25:08 06/28/19 16 06/28/2015 lipid panel , serum triglyceride 118 mg/dL (<150) Not Available [facility] ([facility] Ordering - All Locations) Patient Can Go To The Location Of Their Choice, 06/28/2015 20:25:08 06/28/19 16 06/28/2015 lipid panel , serum HDL chol 51 mg/dL (>39) Not Available [facility] (Centralized Electronic Ordering - All Locations) Patient Can Go To The Location Of Their Choice, [id number] 06/28/2015 20:25:08 06/28/19 16 06/28/2015 lipid panel , serum LDL cholesterol, calculated 103 mg/dL (0-130 ) Not Available [facility] (Centralized Electronic Ordering - All Locations) Patient Can Go To The Location Of Their Choice, [id number] 06/28/2015 20:25:08 06/28/19 16 06/28/2015 lipid panel , serum non HDL cholesterol (calc) 127 mg/dL (<160) Not Available [facility] (Centralized Electronic Ordering - All Locations) Patient Can Go To The Location Of Their Choice, [id number] 06/28/2015 20:25:08 06/28/19 16 06/29/2015 hepat itis C virus Ab, serum anti-hepatit is C NEGAT CATINA REFER ENCE RANGE : NEGAT CATINA Not Available [facility] (Centralized Electronic Ordering - All Locations) Patient Can Go To The Location Of Their Choice, [id number] 06/29/2015 10:13:03 06/28/19 16 elect rocajay diogr am No observ ation record ed. alli Not Available 06/05 10:34:52 Result Notes None recorded. 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 Uday michelle MD [address] [facility] [address], [place], [address], [facility] 6 18:15:24 Palpitat ions 73852061 Active Uday michelle MD [address] [facility] [address], [place], [address], [facility] 6 18:19:31 Contact dermatit is caused by food in contact with skin [id number] Completed 200712/08/2013 RECORDED 02/16/20 08 9:35AM BY ALEXIA BOWDEN ON/CHARLES michelle MD [address] [facility] [address], [place], [address], [facility] 6 18:15:24 At increase d risk of sexually transmit porfirio infectio n [id number] Completed 200712/08/2013 RECORDED 02/16/20 08 9:35AM BY ALEXIA BOWDEN ON/CHARLES michelle MD [address] [facility] [address], [facility], [address], [facility] 6 18:15:24 Contact dermatit is caused by food in contact with skin [id number] Completed 200712/09/2013 RECORDED 02/16/20 08 9:35AM BY ALEXIA BOWDEN ON/CHARLES michelle MD [address] [facility] [address], [facility], [address], [facility] 6 18:15:24 At increase d risk of sexually transmit porfirio infectio n [id number] Completed 200712/09/2013 RECORDED 02/16/20 08 9:35AM BY ALEXIA BOWDEN ON/CHARLES michelle MD [address] [facility] [address], [place] [address], [facility] 6 18:15:24 Contact dermatit is caused by food in contact with skin [id number] Completed 200711/15/2013 RECORDED 02/16/20 08 9:35AM BY ALEXIA BOWDEN ON/ADDRAVEN michelle MD [address] [facility] [address], [place] [address], [facility] 6 18:15:24 At increase d risk of sexually transmit porfirio infectio n [id number] Completed 200711/15/2013 RECORDED 02/16/20 08 9:35AM BY ALEXIA BOWDEN ON/CHARLES michelle MD [address] [facility] [address], [place], [address], [facility] 6 18:15:24 Influenz a vaccine needed [id number] 06 Completed 201012/08/2013 DATE: 04/07/20 11; RECORDED 12/18/19 12 3:13PM BY ALEXIA GUY/CHARLES michelle MD [address] [facility] [address], [place] [address], [facility] 6 18:15:24 Influenz a vaccine needed [id number] 06 Completed 201012/09/2013 DATE: 04/07/20 11; RECORDED 12/18/19 12 3:13PM BY ALEXIA GUY/CHARLES michelle MD [address] [facility] [address], [place], [address], [facility] 6 18:15:24 Influenz a vaccine needed [id number] 06 Completed 201011/15/2013 DATE: 04/07/20 11; RECORDED 12/18/19 12 3:13PM BY ALEXIA GUY ON/CHARLES michelle MD [address] [facility] [address], [place] [address], [facility] 6 18:15:24 Screenin g for malignan t neoplasm of colon Completed 201112/08/2013 RECORDED 11/18/19 12 1:25PM BY RAJAN MARRUFO, HISTORIC AL SUMMARY Uday michelle MD [address] [facility] [address], [place], [address], [facility] 6 18:15:24 Screenin g for malignan t neoplasm of colon Completed 201112/09/2013 RECORDED 11/18/19 12 1:25PM BY RAJAN MARRUFO, JESSIC AL SUMMARY Uday michelle MD [address] [facility] [address], [place], [address], [facility] 6 18:15:25 Screenin g for malignan t neoplasm of colon Completed 201111/15/2013 RECORDED 11/18/19 12 1:25PM BY RAJAN MARRUFO, JESSIC AL SUMMARY Uday michelle MD [address] [facility] [address], [place], [address], [facility] 6 18:15:24 Nocturia [id number] Completed 201112/08/2013 RECORDED 12/18/19 12 3:13PM BY ALEXIA GUY ON/ADDEN IZA michelle MD [address] [facility] [address], [place], [address], [facility] 6 18:15:24 Palpitat ions [id number] Completed 201112/08/2013 RECORDED 12/18/19 12 3:13PM BY ALEXIA GUY ON/CHARLES michelle MD [address] [facility] [address], [place], [address], [facility] 6 18:15:24 Eruption [id number] Completed 201112/08/2013 RECORDED 12/18/19 12 3:13PM BY ALEXIA GUY ON/ADDRAVEN michelle MD [address] [facility] [address], [place], [address], [facility] 6 18:15:24 Adult health examinat ion Completed 201112/08/2013 RECORDED 12/18/19 12 3:13PM BY ALEXIA GUY ON/CHARLES michelle MD [address], [place], [address], [facility] 6 18:15:24 Nocturia [id number] Completed 201112/09/2013 RECORDED 12/18/19 12 3:13PM BY ALEXIA GUY ON/CHARLES michelle MD [address] [facility] [address], [place], [address], [facility] 6 18:15:24 Palpitat ions 86417870 Completed 201112/09/2013 RECORDED 12/18/19 12 3:13PM BY ALEXIA GUY ON/CHARLES michelle MD [address], [place], [address], [facility] 6 18:15:24 Eruption [id number] Completed 201112/09/2013 RECORDED 12/18/19 12 3:13PM BY ALEXIA GUY ON/CHARLES michelle MD [address] [facility] [address], [place], [address], [facility] 6 18:15:24 Adult health examinat ion Completed 201112/09/2013 RECORDED 12/18/19 12 3:13PM BY ALEXIA GUY/CHARLES michelle MD [address], [place], [address], [facility] 6 18:15:24 Nocturia [id number] Completed 201111/15/2013 RECORDED 12/18/19 12 3:13PM BY ALEXIA GUY ON/CHARLES michelle MD [address], [place], [address], [facility] 6 18:15:24 Palpitat ions 25296079 Completed 201111/15/2013 RECORDED 12/18/19 12 3:13PM BY ALEXIA GUY ON/CHARLES michelle MD [address], [place], [address], [facility] 6 18:15:24 Eruption [id number] Completed 201111/15/2013 RECORDED 12/18/19 12 3:13PM BY ALEXIA GUY ON/CHARLES michelle MD [address] [facility] [address], [place], [address], [facility] 6 18:15:24 Adult health examinat ion Completed 201111/15/2013 RECORDED 12/18/19 12 3:13PM BY ALEXIA GUY ON/CHARLES michelle MD [address] [facility] [address], [place], [address], [facility] 6 18:15:24 Chest pain [id number] Completed 201112/08/2013 RECORDED 01/14/20 12 2:58PM BY ALEXIA GUY ON/CHARLES michelle MD [address] [facility] [address], [place], [address], [facility] 6 18:15:24 Influenz a with respirat ory manifest ation other than pneumoni a Completed 201112/08/2013 IMPRESSI ON: CONTINUE WITH CONSERVA TIVE MGMT. NO ROLE FOR ABX.; RECORDED 01/14/20 12 2:58PM BY ALEXIA GUY ON/CHARLES michelle MD [address], [place], [address], [facility] 6 18:15:24 Chest pain [id number] Completed 201112/09/2013 RECORDED 01/14/20 12 2:58PM BY ALEXIA GUY ON/CHARLES michelle MD [address], [place], [address], [facility] 6 18:15:24 Influenz a with respirat ory manifest ation other than pneumoni a Completed 201112/09/2013 IMPRESSI ON: CONTINUE WITH CONSERVA TIVE MGMT. NO ROLE FOR ABX.; RECORDED 01/14/20 12 2:58PM BY ALEXIA GUY ON/CHARLES michelle MD [address] [facility] [address], [place], [address], [facility] 6 18:15:24 Chest pain [id number] Completed 201111/15/2013 RECORDED 01/14/20 12 2:58PM BY ALEXIA GUY ON/CHARLES michelle MD [address] [facility] [address], [place], [address], [facility] 6 18:15:24 Influenz a with respirat ory manifest ation other than pneumoni a Completed 201111/15/2013 IMPRESSI ON: CONTINUE WITH CONSERVA TIVE MGMT. NO ROLE FOR ABX.; RECORDED 01/14/20 12 2:58PM BY ALEXIA GUY ON/CHARLES michelle MD [address] [facility] [address], [place], [address], [facility] 6 18:15:24 Allergy to drug [id number] Completed 201112/08/2013 IMPRESSI ON: MOST LIKELY TO THE CODEINE, HAS HIVES PTT O STOP MED AND TX WITH ZYRTEC TO COVER ALLERGIE S AND DRUG REACTION ; RECORDED 01/29/20 12 9:31AM BY ALEXIA GUY ON/CHARLES michelle MD [address] [facility] [address], [facility] [place], [address], [facility] 6 18:15:24 Allergic rhinitis 49841204 Completed 201112/08/2013 IMPRESSI ON: MOST LIKELY THE CAUSE OF THE COUGH, PT TO START ONE OR THE OTHER WHICHEVE R IS COVERED, SEEMS LIKE A VIRAL COUGH WITH ALLERGY COMPONEN T.; RECORDED 01/29/20 12 9:31AM BY ALEXIA GUY ON/CHARLES michelle MD [address] [facility] [address], [facility] [place] [facility] [place], [address], [facility] 6 18:15:24 Patient status finding [id number] Completed 201112/08/2013 RECORDED 01/29/20 12 9:31AM BY ALEXIA GUY/CHARLES michelle MD [address] [facility] [address], [place], [address], [facility] 6 18:15:24 Allergy to drug 234316286 Completed 201112/09/2013 IMPRESSI ON: MOST LIKELY TO THE CODEINE, HAS HIVES PTT O STOP MED AND TX WITH ZYRTEC TO COVER ALLERGIE S AND DRUG REACTION ; RECORDED 01/29/20 12 9:31AM BY ALEXIA GUY/CHARLES michelle MD [address] [facility] [address], [place], [address], [facility] 6 18:15:24 Allergic rhinitis 17937506 Completed 201112/09/2013 IMPRESSI ON: MOST LIKELY THE CAUSE OF THE COUGH, PT TO START ONE OR THE OTHER WHICHEVE R IS COVERED, SEEMS LIKE A VIRAL COUGH WITH ALLERGY COMPONEN T.; RECORDED 01/29/20 12 9:31AM BY ALEXIA GUY ON/CHARLES michelle MD [address] [facility] [address], [place], [address], [facility] 6 18:15:24 Patient status finding [id number] Completed 201112/09/2013 RECORDED 01/29/20 12 9:31AM BY ALEXIA GUY ON/CHARLES michelle MD [address] [facility] [address], [place], [address], [facility] 6 18:15:24 Allergy to drug 810883270 Completed 201111/15/2013 IMPRESSI ON: MOST LIKELY TO THE CODEINE, HAS HIVES PTT O STOP MED AND TX WITH ZYRTEC TO COVER ALLERGIE S AND DRUG REACTION ; RECORDED 01/29/20 12 9:31AM BY ALEXIA GUY ON/CHARLES michelle MD [address] [facility] [address], [place], [address], [facility] 6 18:15:24 Allergic rhinitis 23413073 Completed 201111/15/2013 IMPRESSI ON: MOST LIKELY THE CAUSE OF THE COUGH, PT TO START ONE OR THE OTHER WHICHEVE R IS COVERED, SEEMS LIKE A VIRAL COUGH WITH ALLERGY COMPONEN T.; RECORDED 01/29/20 12 9:31AM BY ALEXIA GUY ON/CHARLES michelle MD [address] [facility] [address], [place], [address], [facility] 6 18:15:24 Patient status finding [id number] Completed 201111/15/2013 RECORDED 01/29/20 12 9:31AM BY ALEXIA GUY ON/CHARLES michelle MD [address] [address], [place], [address], [facility] 6 18:15:24 Cough 15841732 Completed 201212/08/2013 IMPRESSI ON: HE ADVISED HIM TO RESTART THE CLARITIN WHICH HE AGREED TO DO AND TOLD HIM THAT THE COUGH COULD CONTINUE FOR ANOTHER COUPLE OF WEEKS BUT THAT IT WOULD SOON RESOLVE. ; RECORDED 02/22/20 13 2:10PM BY ALEXIA GUY ON/CHARLES michelle MD [address] [address], [place], [address], [facility] 6 18:15:24 Cough 28363760 Completed 201212/09/2013 IMPRESSI ON: HE ADVISED HIM TO RESTART THE CLARITIN WHICH HE AGREED TO DO AND TOLD HIM THAT THE COUGH COULD CONTINUE FOR ANOTHER COUPLE OF WEEKS BUT THAT IT WOULD SOON RESOLVE. ; RECORDED 02/22/20 13 2:10PM BY ALEXIA GUY ON/CHARLES michelle MD [address] [address], [place], [address], [facility] 6 18:15:24 Cough [id number] Completed 201211/15/2013 IMPRESSI ON: HE ADVISED HIM TO RESTART THE CLARITIN WHICH HE AGREED TO DO AND TOLD HIM THAT THE COUGH COULD CONTINUE FOR ANOTHER COUPLE OF WEEKS BUT THAT IT WOULD SOON RESOLVE. ; RECORDED 02/22/20 13 2:10PM BY ALEXIA GUY/CHARLES michelle MD [address] [address], [place], [address], [facility] 6 18:15:24 Abdomina l pain 45026441 Active 2013 IMPRESSI ON: UNCLEAR ETIOLOGY ; MAY REPRESEN T IBS GIVEN THE FACT THAT IT IS RELATED TO FOOD; POSSIBLE LACTOSE- INTOLERA NCE ALTHOUGH IT HAPPENS WITH OTHER FOODS WELL. WILL DO A TRIAL OF A PPI AND SEE HIM BACK NEXT WEEK.; RECORDED 06/23/19 14 5:15PM BY UDAY WARREN MD, OFFICE VISIT Uday michelle MD [address] [facility] [address], [place], [address], [facility] 6 18:15:24 Canceled operativ e procedur e [id number] Completed 201304/23/2014 RECORDED 06/23/19 14 2:29PM BY AGUSTIN BAEZ I, OFFICE VISIT Uday michelle MD [address] [address], [place], [address], [facility] 6 18:15:24 Depressi ve disorder 18074823 Active 2013 RECORDED 06/23/19 14 2:29PM BY AGUSTIN BAEZ I, OFFICE VISIT Uday michelle MD [address] [address], [place], [address], [facility] 6 18:15:24 Borderli ne personal ity disorder 04283199 Active 2013 RECORDED 06/23/19 14 2:29PM BY AGUSTIN BAEZ I, OFFICE VISIT Uday michelle MD [address] [address], [place], [address], [facility] 6 18:15:24 Generali zed anxiety disorder 70000800 Active 2013 RECORDED 06/23/19 14 2:29PM BY AGUSTIN BAEZ I, OFFICE VISIT Uday michelle MD [address] [address], [place], [address], [facility] 6 18:15:24 Pure hypercho lesterol emia 965564079 Active 2013 RECORDED 06/23/19 14 2:29PM BY AGUSTIN BAEZ I, OFFICE VISIT Uday michelle MD [address] [address], [place], [address], [facility] 6 18:19:31 Irritabl e bowel syndrome 95962770 Active 2013 IMPRESSI ON: DISCUSSE D WITH PT AND AGAIN ENCOURAG ED ROUTINE COLONOSC OPY SCREENIN G, BUT HE DECLINES . HE HAS NO DOCUMENT ED HX OF COLITIS IN HIS RECORD, JUST SUBJECTI VE REPORTS TODAY, WHICH HE MAY BE CONFUSIN G WITH HIS HX OF IBS. ENCOUARG ED ADEQUATE HYDRATIO N, INCREASE D DIETARY FIBER, AND SUPPLEME NT. MAY ALSO USE OTC STOOL SOFTENER IF NO IMPROVEM ENT. F/U PRN.; RECORDED 06/23/19 14 2:29PM BY AGUSTIN BAEZ I, OFFICE VISIT Uday michelle MD [address] [address], [place], [address], [facility] 6 18:15:24 Low back pain 428522639 Active 2013 RECORDED 06/23/19 14 2:29PM BY AGUSTIN BAEZ I, OFFICE VISIT Uday michelle MD [address] [address], [place], [address], [facility] 6 18:15:24 Patient status finding [id number] Completed 201304/23/2014 RECORDED 06/23/19 14 2:29PM BY AGUSTIN BAEZ I, OFFICE VISIT Uday michelle MD [address] [address], [place], [address], [facility] 6 18:15:24 Benign paroxysm al position al vertigo 992177243 Active 2013 IMPRESSI ON: HE WAS GIVEN EXERCISE S TO DO AT HOME; FELT MORE DIZZY ON THE MECLIZIN E.; RECORDED 06/23/19 14 2:30PM BY AGUSTIN BAEZ I, OFFICE VISIT Uday michelle MD [address] [address], [place], [address], [facility] 6 18:15:24 Amnesia [id number] Completed 201304/23/2014 IMPRESSI ON: WE HAVE [facility]CTE D [facility] AND THEY HAVE CALLED HIM TO SCHEDULE AN APPT SO HE WILL RETURN THEIR CALL TO ARRANGE THIS.; RECORDED 07/13/19 14 1:56PM BY NEERAJ BARBOUR AL SUMMARY Uday michelle MD [address] [facility] [address], [place], [address], [facility] 6 18:15:24 Problem Notes None recorded. Medical Equipment None Reported. Allergies Allergen ID Allergen Name Allergen Category Reaction Reaction Severity Criticality Documentation Date Start Date Code Code System Note Provider Name and Address Organization Details Recorded Time 2183 codeine medicatio n Not available Not available Not available 11/15/20132013 2670 RxNorm REACT ION: RASH; COMME NT: RECOR DED 06/23 2:29P M BY AGUSTIN HUBBARD, OFFIC E VISIT ; Not Available [facility] 4 13:20:12 2185 Product containin g penicilli n (product) medicatio n Not available Not available Not available 11/15/20132013 80895 8001 SNOMED REACT ION: NAUSE A; COMME NT: RECOR DED 06/23 2:29P M BY AGUSTINGRECIA HUBBARD, OFFIC E VISIT ; Not Available [facility] 4 13:20:12 2186 Tetanus Toxoid medicatio n Not available Not available Not available 11/15/20132013 REACT ION: NAUSE A; COMME NT: RECOR DED 06/23 2:29P M BY AGUSTINGRECIA HUBBARD, OFFIC E VISIT ; Not Available [facility] 4 13:20:12 2187 albumin human, [facility] medicatio n Not available Not available Not available 11/15/20132013 74166 9 RxNorm COMME NT: RECOR DED 06/23 2:29P M BY AGUSTIN HUBBARD, OFFIC E VISIT ; Not Available [facility] 4 13:20:12 Medications Name Sig Start Date Stop Date Status Note LastModified by Organization Details LastModified Time cetirizin e 10 mg tablet DAILY 08/24 completed RECORDED 08/25/19 13 8:44AM BY UDAY WARREN MD, ALMAATI ON/ADDEN DUM; Not Available Not Available Not Available azithromy verónica 250 mg tablet active Not Available Not Available No t Available Morphine Sulfate IR 15 mg tablet 2007 active RECORDED 11/08/19 08 2:04PM BY LUIS ALBERTO LEHMAN, ALEXIA ON/ADDEN DUM;RX PER PHYSIATR IST Not Available Not Available Not Available clonazepa m 0.5 mg tablet DAILY 2012 active RECORDED 02/22/20 13 2:11PM BY AGUSTIN BAEZ I, OFFICE VISIT; Not Available Not Available Not Available meclizine 12.5 mg tablet QD 03/14 completed RECORDED 03/14/20 13 1:36PM BY ALEXIA HERRERA ON/ADDEN DUM; Not Available Not Available Not Available Aerochamb er MV spacer NEEDED 02/12 completed RECORDED 04/05/20 12 9:47AM BY AYE GUY ON AUTO-JULIEN CTIVATIO N;TO BE USED WITH MDI Not Available Not Available Not Available trazodone 100 mg tablet AT BEDTIME 06/22 completed RECORDED 06/22/19 09 8:41PM BY AVANI Cruz NP, ALEXIA ON/ADDEN DUM; Not Available Not Available Not Available nortripty line 75 mg capsule AT BEDTIME 05/28 completed RECORDED 05/28/19 12 4:24PM BY ALEXIA HERRERA ON/ADDEN DUM; Not Available Not Available Not Available Tylenol-C odeine #3 300 mg-30 mg tablet EVERY SIX HOURS, NEEDED 01/15 completed RECORDED 01/16/20 12 10:23AM BY AYE GUY ON AUTO-JULIEN CTIVATIO N; Not Available Not Available Not Available ibuprofen 600 mg tablet FOUR TIMES DAILY active RECORDED 03/14/20 13 1:35PM BY ALEXIA HERRERA ON/ADDEN DUM; Not Available Not Available Not Available fentanyl 25 mcg/hr transderm al patch Q3D 2007 active RECORDED 11/08/19 08 2:08PM BY LUIS ALBERTO LEHMAN, ALEXIA ON/ADDEN DUM; Not Available Not Available Not Available loratadin e 10 mg tablet DAILY 03/14 completed RECORDED 03/14/20 13 1:36PM BY ALEXIA HERRERA ON/ADDEN DUM; Not Available Not Available Not Available albuterol (refill) 90 mcg/actua tion aerosol inhaler FOUR TIMES DAILY, NEEDED 02/12 completed RECORDED 04/05/20 12 9:47AM BY AYE GUY ON AUTO-JULIEN CTIVATIO N;USE WITH SPACER Not Available Not Available Not Available lactic acid 10 % lotion TWO TIMES DAILY 11/02 completed RECORDED 11/03/19 10 9:28AM BY UDAY WARREN MD, ALEXIA ON/ADDEN DUM;THIS ORDER DISCONTI NUED PER MEDI-SPA N. Not Available Not Available Not Available psyllium husk 0.52 gram capsule DAILY, NEEDED, FOR CONSTIPA TION 03/14 completed RECORDED 03/14/20 13 1:36PM BY ALEXIA HERRERA ON/ADDEN DUM; Not Available Not Available Not Available Salex 6 % lotion,ex tended release THREE TIMES DAILY, NEEDED 11/02 completed RECORDED 11/03/19 10 9:28AM BY UDAY WARREN MD, ALEXIA ON/ADDEN DUM;THIS ORDER DISCONTI NUED PER MEDI-SPA N. Not Available Not Available Not Available hydroxyzi ne HCl TWO TIMES DAILY, NEEDED 09/02 completed RECORDED 09/03/19 13 5:11PM BY UDAY WARREN MD, ALEXIA ON/ADDEN DUM; Not Available Not Available Not Available Meclizine Hcl Chewable DAILY NEEDED FOR VERTIGO 03/07 completed RECORDED 03/14/20 13 1:26PM BY KENNETH GUYJOSH ON AUTO-JULIEN CTIVATIO N; Not Available Not Available Not Available tramadol ER 100 mg tablet,ex tended release 24 hr THREE TIMES DAILY, NEEDED 10/25 completed RECORDED 10/26/19 09 8:05AM BY AVANI Cruz PROGRAM ASSOCIATE, OFFICE VISIT;TH IS ORDER DISCONTI NUED PER MEDI-SPA N. Not Available Not Available Not Available salicylic acid 6 % topical cream TWO TIMES DAILY 03/14 completed RECORDED 03/14/20 13 1:35PM BY RAMIRO JIMENEZ ANNOTJOSH ON/CHARLES DUM; Not Available Not Available Not Available Probiotic 20 billion cell capsule Take 1 capsule every day by oral route. active Not Available Not Available No t Available Men's Multivita min Gummies active Not Available Not Available Not Available Vitals Date Recorded Body height Body weight Body mass index (BMI) Oxygen saturation Heart rate Body temperature Systolic And Diastolic Provider Name and Address Organization Details Last Updated DateTime 6 169.545 cm 18899.4 8602 g 23 kg/m2 97 % 60 /min 97.3 [degF] 134/78 mm[Hg] Agustin Henderson [facility] 6 13:57:10 Date Recorded Body height Body weight Oxygen saturation Body mass index (BMI) Body temperature Heart rate Systolic And Diastolic Provider Name and Address Organization Details Last Updated DateTime 5 169.545 cm 13615.7 4706 g 98 % 21.8 kg/m2 97.8 [degF] 70 /min 110/75 mm[Hg] Yuko Ramsay [facility] [place] 5 15:08:49 Date Recorded Oxygen saturation Body weight Heart rate Body temperature Body mass index (BMI) Body height Systolic And Diastolic Provider Name and Address Organization Details Last Updated DateTime 4 98 % 30605.7 0891 g 68 /min 97.6 [degF] 22.6 kg/m2 169.545 cm 122/70 mm[Hg] Agustin Henderson [facility] 4 13:56:10 Social History Question Answer Notes LastModified by Organizat ion Details LastModified Time Tobacco Smoking Status Never Smoker Not Available [facility] 03/06/2020 03:36:36 Do You Have An Advance Directive? No [id number] Information not available 03/06/2020 Is Blood Transfusion Acceptable In An Emergency? Yes [id number] Information not available 03/06/2020 What Is Your Level Of Caffeine Consumption? None [id number] Information not available 03/06/2020 Are You Deaf Or Do You Have Serious Difficulty Hearing? No [id number] Information not available 03/06/2020 What Type Of Diet Are You Following? VEGETARIAN [id number] Information not available 03/06/2020 Which Illicit Or Recreational Drugs Have You Used? None [id number] Information not available 03/06/2020 Live Alone Or With Others? Alone [employer] Information not available 04/21/2014 How Often Do You Need To Have Someone Help You When You Read Instructions, Pamphlets, Or Other Written Material From Your Doctor Or Pharmacy? Never [employer] Information not available 06/28/2015 How Many Children Do You Have? 0 [id number] Information not available 03/06/2020 Difficulty Reading? No [employer] Information not available 04/21/2014 Seat Belts Used Routinely Yes [employer] Information not available 06/28/2015 Are You Sexually Active? No [id number] Information not available 03/06/2020 Smoke Alarm In Home Yes [employer] Information not available 06/28/2015 Do You Use Sunscreen Routinely? Yes [id number] Information not available 03/06/2020 Difficulty Watching TV? No [employer] Information not available 04/21/2014 Do You Have Difficulty Walking Or Climbing Stairs? Yes [id number] Information not available 03/06/2020 Sex: Unknown Functional Status Question Answer Note LastModified by Organizat ion Details LastModified Time What is your level of alcohol consumption? None [id number] Information not available 03/06/2020 Are you currently employed? Yes [id number] Information not available 03/06/2020 Difficulty driving at night? No [employer] Information not available 04/21/2014 Do you have difficulty doing errands alone? No [id number] Information not available 03/06/2020 Are you able to care for yourself independently? Yes [id number] Information not available 03/06/2020 Do you have difficulty dressing, bathing, grooming, or toileting? No [id number] Information not available 03/06/2020 What is your exercise level? Moderate [id number] Information not available 03/06/2020 Mental Status Question Answer Note LastModified by Organization D etails LastModified Time Do you have difficulty concentrating, remembering or making decisions? Yes [id number] Information no t available 03/06/2020 Family History Relationship Description Onset Age of this Age Resolved Age Notes LastModified by Organization Details LastModified Time Mother Hypertensive disorder [email or web address] Not available 06/28 13:57:10 Father Diabetes mellitus [facility] Not available 06/28 13:57:10 Medical History No medical history recorded. Past Encounters Encounter ID Performer Location Encounter Start Date Encounter Closed Date Diagnosis/Indication Diagnosis SNOMED-CT Code Diagnosis ICD10 Code Diagnosis IMO Codes Diagnosis Note [id number] [facility] [address] [facility] [place] [address] 01/12/2007 00:00:00 [id number] [facility] [address] [facility] [place] [address] 02/25/2007 00:00:00 [id number] [facility] [address] [facility] [place] [address] 03/23/2007 00:00:00 [id number] [facility] [address] [facility] [place] [address] 05/25/2007 00:00:00 [id number] [facility] [address] [facility] [place] [address] 07/08/2007 00:00:00 [id number] [facility] [address] [facility] [place] [address] 07/26/2007 00:00:00 [id number] [facility] [address] [facility] [place] [address] 11/08/2007 00:00:00 [id number] [address] [place] [address] 02/16/2008 00:00:00 [id number] [facility] [address] [place] [address] 06/22/2008 00:00:00 [id number] [facility] [address] [place] [address] 10/24/2008 00:00:00 [id number] [facility] [address] [place] [address] 11/14/2008 00:00:00 [id number] [facility] [address] [facility] [address] [place] [address] 11/01/2009 00:00:00 [id number] [facility] [address] [facility] [address] [place] [address] 05/07/2010 00:00:00 [id number] [facility] [address] [facility] [address] [place] [address] 07/15/2010 00:00:00 [id number] [facility] [address] [facility] [address] [place] [address] 04/07/2011 00:00:00 [id number] [facility] [address] [facility] [place] [address] 12/18/2011 00:00:00 [id number] [facility] [address] [facility] [address] [place] [address] 01/06/2012 00:00:00 [id number] [employer]ce [address] [facility] [place] [address] 01/14/2012 00:00:00 [id number] [employer]ce [address] [facility] [address] [place] [address] 01/17/2012 00:00:00 [id number] auto[employer]Comm erce [address] [facility] [address] [place] [address] 02/05/2012 00:00:00 [id number] auto[employer] erce [address] [facility] [place] [address] 02/21/2013 00:00:00 [id number] auto[employer]Comm erce [address] [facility] [place] [address] 03/01/2013 00:00:00 [id number] auto[employer]Comm erce [address] [facility] [place] [address] 06/23/2013 00:00:00 [id number] Uday Barton MD Main Office [address] [place] [address] 04/21/2014 13:41:42 04/21/2014 14:35:50 Adult health examination [id number] [facility] risk for falls 643710798 [facility] cerumen 99155500 690313 SHWETA Pena Main Office [address] [facility] [address] [place] [address] 01/26/2015 15:01:50 01/26/2015 15:24:57 Irritable bowel syndrome 21059169 Borderline personality disorder [id number] Uday Barton MD Main Office [address] [facility] [address] [place] [address] 06/28/2015 13:31:48 06/28/2015 14:47:55 Adult health examination 853779001 Z00.00 he is UTD with immunizati ons and colonoscop y. We discussed PSA and he is w/o fx hx or symptoms so we will not check the PSA. [facility] risk for falls 482957546 Z91.81 Palpitations 02436225 R0 0.2 Pure hypercholesterolemia 711748645 E78.0 Health Concerns Section Related Observation LastModified by Organization Detai ls LastModified Time None Recorded Concern Status LastModified by Organization Details LastModified Time None Recorded Advance Directives Directive N: Payers Insurance Date Sequence Insurance Name Policy Number Policy Leon Covered Member ID Leon Member ID Guarantor Name 04/23/2021 2 [place] [facility] [id number] [facility] 04/23/2021 1 [place] [employer] Hero King [id number] Hero King Notes Date Note Type Note Provider Name and Address Organization Details Recorded Time 04/21/2014 text/html Medicare Annual Wellness VisitReported by PatientSocial/Behavior al HistoryFor diet and nutrition, patient reportshealthy diet. For fracture risk, patient reportsno history of fractures,no recent explained fracture,no sudden unexplained fractures, andno previous musculoskeletal injuries. For physical activity, patient reportsexercises on a regular basis,recent increase in physical activity, andgood physical condition.Mental Status:For depression risk, patient reportshistory of depressionbut reportsnever feels sad, empty, or tearful,no loss of interest in activities,no significant changes in weight,no sleep disturbances or insomnia,no agitation,no loss of energy,no feelings of worthlessness or guilt,no thoughts of suicide, andno history of mood disorders. For orientation, patient reportsno disorientation to time,no disorientation to date, andno disorientation to place. For speech/motor difficulties, patient reportsno speech difficulties,no difficulty expressing formulated concepts,no difficulty with fine manipulative tasks,no difficulty writing/copying,no slowed reaction time, anddoes not knock things over when trying to pick them up.Functional AbilityFor hearing, patient reportsno loss of hearing. For vision, patient reportsno vision problems. For activities of daily living, patient reportsable to bathe with limited or no assistance,able to contol urination and bowels,able to dress with limited or no assistance,able to feed self with limited or no assistance,able to get out of chair or bed with limited or no assistance,able to groom with limited or no assistance, andable to toilet with limited or no assistance. For instrumental activities of daily living, patient reportsable to do house work with limited or no assistance,able to grocery shop with limited or no assistance,able to manage medications with limited or no assistance,able to manage money with limited or no assistance,able to prepare meals with limited or no assistance, andable to use the phone with limited or no assistance. For falls risk assessment, patient reportsno frequent falls while walking,no fall in the past year,no fall since last visit, andno dizziness/vertigo. Uday Barton MD [address] [place] [address], [address], [facility] [place] 04/23/2014 16:35:24 01/26/2015 text/html Generic HPI TemplateReported by PatientPatient is disabled, states he has colitis, back pain, is on meds that have affected his eye sight, he is legally blind. He lives in an apartment in [place], [place], he just got [place] there 14 months ago. His landlord is not happy with the current rent he is being paid by [employer] and wants him to move out of the apartment. Patient would like a letter stating he cannot leave this apartment as he has become accustomed to it and is comfortable there. He has been in the area a couple of months.ROS as noted in the HPI Uday Barton MD [address] [facility] [address], [place], [address], [facility] [place] 01/27/2015 14:30:36 06/28/2015 text/html Medicare Annual Wellness VisitReported by PatientSocial/Behavior al HistoryFor fracture risk, patient reportsno history of fractures,no recent explained fracture,no sudden unexplained fractures, andno previous musculoskeletal injuries. For physical activity, patient reportsexercises on a regular basis,recent increase in physical activity, andgood physical condition.Mental Status:For concentration and memory, patient reportsmemory lapses or lossandforgetting words. For orientation, patient reportsno disorientation to time,no disorientation to date, andno disorientation to place.Functional AbilityFor hearing, patient reportsno loss of hearing. For vision, patient reportsno vision problems. For activities of daily living, patient reportsable to bathe with limited or no assistance,able to contol urination and bowels,able to dress with limited or no assistance,able to feed self with limited or no assistance,able to get out of chair or bed with limited or no assistance,able to groom with limited or no assistance, andable to toilet with limited or no assistance. For instrumental activities of daily living, patient reportsable to do house work with limited or no assistance,able to grocery shop with limited or no assistance,able to manage medications with limited or no assistance,able to manage money with limited or no assistance,able to prepare meals with limited or no assistance, andable to use the phone with limited or no assistance. For falls risk assessment, patient reportsno frequent falls while walking,no fall in the past year,no fall since last visit, andno dizziness/vertigo. Uday Barton MD [facility] [address], [address], [facility] 06/28/2015 18:19:44
--- OUTSIDE RECORDS SUMMARY | 2025-03-23 19:51 | XMS_ITS | Data Portability ---
Author Organization [facility] - IP Address [address] [place] [address] Care Team Providers Care Imaging Technician Name Role Phone IRAIS VO Primary Care Provider Assessment Encounter Date Assessment Date Assessment LastModified by Organization Details LastModified Time 05/17/2018 05/17/2018 The patient has decreased AROM, Strength, and loss of ADL function. His oswestry score of 9 equals mild disability. Today we worked on Range of motion, manual stretch, strengthening and ice with IFC for pain. He will be started on a HEP next treatment. He felt better after treatment today. He will benefit from skilled therapy and prognosis is good. 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 Patient able to demonstrate proper postural control with functional activities and exercises Decrease pain level by 30 to 50% with ADL Increase functional activities without increase pain To discharge patient from physical therapy when appropiate Exercise performed per flowsheet Issued and instructed patient on Home Exercise Program Instructed application of ice and/or moist heat to above region for pain management (15 mins) Educated in proper body mechanics/postur e/lifting techniques Skin intact post treatment I certify the need for these services provided under this plan of treatment and have no revisions to the plan of care. Provider Signature Date _ Printed Provider Name Not available 05/17/2018 12:23:57 05/20/2018 05/20/2018 The patient has decreased AROM, Strength, and loss of ADL function. His oswestry score of 9 equals mild disability. Today we worked on Range of motion, manual stretch, strengthening and ice with IFC for pain. He was given a HEP today. He said he was allergic to ice today after treatment. We used ice last treatment on his low back with no complaints. Today he said he had chest pains with ice.He said he was OK after the treament and the ice and IFC were removed. We will continue to monitor this and if he has problems next treatment will DC the ice. 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 Patient able to demonstrate proper postural control with functional activities and exercises Decrease pain level by 30 to 50% with ADL Increase functional activities without increase pain To discharge patient from physical therapy when appropiate Exercise performed per flowsheet Issued and instructed patient on Home Exercise Program Instructed application of ice and/or moist heat to above region for pain management (15 mins) Educated in proper body mechanics/postur e/lifting techniques Skin intact post treatment I certify the need for these services provided under this plan of treatment and have no revisions to the plan of care. Provider Signature Date _ Printed Provider Name Not available 05/20/2018 18:05:47 05/26/2018 05/26/2018 The patient has decreased AROM, Strength, and loss of ADL function. His oswestry score of 9 equals mild disability. Today we worked on Range of motion, manual stretch, strengthening and ice with IFC for pain. He was given a t-band for his HEP today. He is feeling better and his movement is improving on the table PT/OT Changine & Maintaining Body Position Current Status G8978 Severity Modifier CI-1-19% Goal Status G8979 Severity Modifier CH-0% Discharge Status Severity Modifier Short term Goals to be met within_2__visits Issued and instructed patient on Home Exercise Program (HEP)Yes Instructed patient on proper posture and body mechanics, lifting techniques skilled nursing Goals to be met within___4_weeks Decrease subjective c/o pain to <=3/10 consistently Patient to be independent and compliant with formal HEP Increase AROM to with no movement/minimal motion loss. Patient able to demonstrate proper postural control with functional activities and exercises Decrease pain level by 30 to 50% with ADL Increase functional activities without increase pain To discharge patient from physical therapy when appropiate Exercise performed per flowsheet Issued and instructed patient on Home Exercise Program Instructed application of ice and/or moist heat to above region for pain management (15 mins) Educated in proper body mechanics/postur e/lifting techniques Skin intact post treatment I certify the need for these services provided under this plan of treatment and have no revisions to the plan of care. Provider Signature Date _ Printed Provider Name Not available 05/26/2018 17:14:09 05/28/2018 05/28/2018 The patient has decreased AROM, Strength, and loss of ADL function. . Today we worked on Range of motion, manual stretch, strengthening and ice with IFC for pain. He was given a t-band for his HEP today. He is feeling better . I gave him more to do on his HEP. I gave hime illustrated hip abduction and clams to do with t-band PT/OT Changine & Maintaining Body Position Current Status G8978 Severity Modifier CI-1-19% Goal Status G8979 Severity Modifier CH-0% Discharge Status Severity Modifier Short term Goals to be met within_2__visits Issued and instructed patient on Home Exercise Program (HEP)Yes Instructed patient on proper posture and body mechanics, lifting techniques skilled nursing Goals to be met within___4_weeks Decrease subjective c/o pain to <=3/10 consistently Patient to be independent and compliant with formal HEP Increase AROM to with no movement/minimal motion loss. Patient able to demonstrate proper postural control with functional activities and exercises Decrease pain level by 30 to 50% with ADL Increase functional activities without increase pain To discharge patient from physical therapy when appropiate Exercise performed per flowsheet Issued and instructed patient on Home Exercise Program Instructed application of ice and/or moist heat to above region for pain management (15 mins) Educated in proper body mechanics/postur e/lifting techniques Skin intact post treatment I certify the need for these services provided under this plan of treatment and have no revisions to the plan of care. Provider Signature Date _ Printed Provider Name Not available 05/28/2018 15:27:02 06/01/2018 06/01/2018 Lumbar spine X rays from May 11, 2018 shows 5 nonrib bearing lumbar spine vertebral bodies. Disc spaces are somewhat diminished at L4-L5 and L5-S1 and he has an exaggerated lumbar lordosis. AP view the hips is normal. Not available 06/01/2018 10:34:03 Plan of Treatment Reminders Order Date Submit Date Provider Last Modified By Organization Details Last Modified Time Details Appointments None record ed. Lab None record ed. Referral None record ed. Procedures None record ed. Surgeries None record ed. Imaging None record ed. Medication Orders None record ed. Patient TargetsNo targets recorded. Patient Instructions Encounter Date Encounter Id Patient Instructions Last Modified By Organization Details Last Modified Time 06/01/2018 [id number] back care and preventing injuries: care instructions Not available 06/01/2018 11:00:03 The patient has done very well in physical therapy and seems to have made good progress. He has a good understanding of his exercises and will continue these in a self-directed manner at home. I did not arrange a recheck. I told them I would be happy to see him in the future if needed. Not available 06/01/2018 10:43:27 Reason for Referral None Reported. Results Created Date Observation Date Name Description Value Unit Range Abnormal Flag Note LastModifiedBy Organization Detail LastModifiedTime Result Notes None recorded. Procedures Surgical History Date Name Laterality Status Provider Name and Address Organization Details Recorded Time 9 74015: E-Stim - Unattended completed Steven Phan [facility] 05/28/2018 15:25:36 9 40584: Therapeutic Exercise completed Steven Phan [facility] 05/28/2018 15:24:20 9 66595: PT Evaluation LOW completed Steven [facility] 05/26/2018 17:11:44 9 76595: E-Stim - Unattended completed Steven Phan [facility] 05/26/2018 17:11:43 9 29354: Therapeutic Exercise completed Steven Phan [facility] 05/26/2018 17:13:11 9 11669: PT Evaluation LOW completed Steven [facility] 05/20/2018 18:01:21 9 46964: E-Stim - Unattended completed Steven [facility] 05/20/2018 18:01:21 9 36754: Therapeutic Exercise completed Steven [facility] 05/20/2018 18:01:21 9 64817: PT Evaluation LOW completed [facility] 05/17/2018 12:15:32 9 56987: E-Stim - Unattended completed [facility] 05/17/2018 12:15:55 9 46913: Therapeutic Exercise completed [facility] 05/17/2018 12:16:15 Imaging Results None recorded. Procedure Notes None recorded. Medical Equipment None Reported. Allergies No known drug allergies Medications Not known to be on any medication Vitals Date Recorded Body height Body mass index (BMI) Body weight Provider Name and Address Organization Details Last Updated DateTime 06/01/2018 167.64 cm 24.4 kg/m2 06462.45 g Tena Mcclendon [facility] 06/01/2018 10:25:54 Social History Question Answer Notes LastModified by Organizat ion Details LastModified Time Tobacco Smoking Status [facility] 13:45:07 Marital Status Single Informat ion not available 05/11/2018 What Was The Date Of Your Most Recent Tobacco Screening? 06/01/2018 Information n ot available 11/25/2018 Sex: Unknown Functional Status Question Answer Note LastModified by Organizat ion Details LastModified Time What is your level of alcohol consumption? None [email or web address] Information not available 05/11/2018 What is your occupation? disability [email or web address] Information not available 05/11/2018 Mental Status None recorded. Family History Relationship Description Onset Age of this Age Resolved Age Notes LastModified by Organization Details LastModified Time Father Diabetes mellitus [email or web address] Not available 12/2018 13:45:56 Father Hypertensive disorder [email or web address] Not available 12/2018 13:46:22 Brother Malignant neoplastic disease blaoksanae r cancer [email or web address] Not available 05/11/2018 13:46:11 Brother Heart disease CHF Not available 12/2018 13:46:30 Mother Hypertensive disorder [email or web address] Not available 12/2018 13:46:22 Medical History Condition Response Other Y Past Encounters Encounter ID Performer Location Encounter Start Date Encounter Closed Date Diagnosis/Indication Diagnosis SNOMED-CT Code Diagnosis ICD10 Code Diagnosis IMO Codes Diagnosis Note [id number] Suraj Kearns JR MD [facility] [address] [place] [address] 05/11/2018 13:31:49 05/11/2018 16:17:47 Low back pain 935473766 M54.5 Lumbar fac et joint pain 142656318 M54.5 Right L5-S1 Degenerati on of lumbosacral intervertebral disc 72078287 M51.37 [id number] STEVEN PHAN PT [facility] [address] 8 05/17/2018 09:44:19 05/17/2018 11:27:15 Low back pain 370891426 M54.5 [id number] STEVEN PHAN PT [facility] [address] [place] [address] 05/20/2018 12:43:37 05/20/2018 14:56:28 Low back pain 930110868 M54.5 Muscle weakness 69468148 M62.81 [id number] STEVEN PHAN PT [facility] [address] [place] [address] 05/26/2018 12:42:46 05/26/2018 14:42:01 Low back pain 352659722 M54.5 Muscle weakness 16221717 M62.81 [id number] STEVEN PHAN PT [facility] [address] 8 05/28/2018 12:47:04 05/28/2018 14:17:31 Low back pain 312039615 M54.5 Muscle weakness 40523789 M62.81 [id number] Elias Durham MD [facility] [address] [place] [address] 06/01/2018 10:20:03 06/01/2018 10:40:40 Low back pain 914871301 M54.5 improved with PT Health Concerns Section Related Observation LastModified by Organization Detai ls LastModified Time None Recorded Concern Status LastModified by Organization Details LastModified Time None Recorded Advance Directives Directive None Recorded Payers Insurance Date Sequence Insurance Name Policy Number Policy Leon Covered Member ID Leon Member ID Guarantor Name 05/06/2024 2 [place] [employer] [place]CONDARY TO MEDICARE) Hero R Fernando [id number] Hero R Fernando 05/06/2024 2 [place]CON[place] MEDICARE) Hero R Fernando [id number] Hero R Fernando 05/06/2024 2 [facility] (MEDICARE REPLACEMENT/A DVANTAGE - HMO) Hero R Fernando [id number] Hero R Fernando 05/06/2024 3 [facility] - DUAL ELIGIBLE (MEDICARE REPLACEMENT/A DVANTAGE - HMO) Hero R Fernando [id number] Hero R Fernando 05/06/2024 1 [place] Hero R Fernando [id number] Hero R Fernando 05/06/2024 2 [place] [facility] Hero R Fernando [id number] Hero R Fernando 05/06/2024 2 [place]COND[place] MEDICARE) Hero R Fernando [id number] Hero R Fernando 05/06/2024 1 [place] Hero R Fernando [id number] Hero R Fernando Notes Date Note Type Note Provider Name and Address Organization Details Recorded Time 05/17/2018 text/html *PT L-spineRepor porfirio by PatientHPIFor associated symptoms, patient reportsweakness. For location, patient reportsbilateral. For quality, patient reportsaching,sharp , andconstant. For severity, patient reportspain level 10/10. For work, patient reportsstay at home. The patient presents with low back pain. He denies any leg pain or numbness at this time. He reports he has had pain since 1996. He had PT in [facility] in [phone] and [phone] with good results. He is retired at this time and not working. Steven kennedy [facility] 05/17/2018 12:24:10 05/20/2018 text/html *PT L-spineRepor porfirio by PatientHPIFor associated symptoms, patient reportsweakness. For location, patient reportsbilateral. For quality, patient reportsaching,sharp , andconstant. For severity, patient reportspain level 8/10. For work, patient reportsstay at home. The patient presents with low back pain. He denies any leg pain or numbness at this time. He reports he has had pain since 1996. Today his pain scale is slightly reduced. Steven kennedy [facility] 05/20/2018 18:07:29 05/26/2018 text/html *PT L-spineRepor porfirio by PatientHPIFor associated symptoms, patient reportsweakness. For location, patient reportsbilateral. For quality, patient reportsaching,sharp , andconstant. For severity, patient reportspain level 7/10. For work, patient reportsstay at home. The patient presents with low back pain. He denies any leg pain or numbness at this time. He reports he has had pain since 1996. Today her reports that he is feeling better and is doing his HEP Steven kennedy [facility] 05/26/2018 17:14:24 05/28/2018 text/html PT L-spineReport ed by PatientHPIFor location, patient reportsbilateral. For severity, patient reportspain level 6/10. The patient reports he is feeling better. He has been doing his HEP. He said today may be his last visit. He returns to the doctor next week for a follow up. Steven kennedy [facility] 05/28/2018 15:27:34 06/01/2018 text/html NKI, he has had back prob. for years, states he has arthritis and scoliosis, He has been going to PT which has helped. MTM: Patient is a 67-year-old retired gentleman who moved from [place] down to [facility] to retire. He had a flare-up of mechanical back pain was seen in our quick care clinic. He was placed in a physical therapy program and has done very well. He is very pleased with his improvement in his back pain in general flexibility. He is not having any significant leg pain today. He brought his back exercises in for me to review. Elias Durham MD [address] [facility],[address] [ ], [place], [address], [facility] 06/01/2018 11:00:05
== END 2025-03-23 15:27 | disposition home or self-care (01) ==
LOC: HO.HMCH 14:29
DX: K52.9 Noninfective gastroenteritis and colitis, unspecified (principal); F41.9 Anxiety disorder, unspecified; F32.A Depression, unspecified; J30.9 Allergic rhinitis, unspecified; R03.0 Elevated blood-pressure reading, without diagnosis of hypertension

== ENCOUNTER → 2025-03-23 14:28 | Outpatient (BNVA) | payer OTHER, SELFPAY | DX: K52.9 Noninfective gastroenteritis and colitis, unspecified (principal); F41.9 Anxiety disorder, unspecified; F32.A Depression, unspecified; J30.2 Other seasonal allergic rhinitis; R03.0 Elevated blood-pressure reading, without diagnosis of hypertension; I38 Endocarditis, valve unspecified; M47.816 Spondylosis without myelopathy or radiculopathy, lumbar region; F45.21 Hypochondriasis; M41.9 Scoliosis, unspecified; Z13.31 Encounter for screening for depression | CPT/HCPCS: 96127; 99212 ==